=== PATIENT | female | born 1935 | race Caucasian/White ===

== ENCOUNTER 2017-11-10 00:03 | Emergency (ER) | payer MEDICARE, OTHER ==
[~2017-11-10] VITALS: Ht 170.2 cm; Wt 65.8 kg
[~2017-11-10 00:03] MED LIST: AMIO200T PO; ATOR40TA PO; DILT240C88 PO; LOSA100T15 PO; MEMA10TA PO; THIA100T13 PO; WARF2TAB6 PO
--- NOTE | 2017-11-10 00:18 | NUR ---
PT TIMMY FROM HOME, PT A/OX4 BREATHING EFFORTLESSLY ON ROOM AIR, PT STATES SHE WAS WALKING AT HOME AND HAD A GLF, PT DENIES ANY INJURIES AT THIS TIME BUT WAS NOT CHERI TO GET OFF THE FLOOR THAT IS WHY PT STATES SHE CALLED 911, PT ON MONITOR, SAEID ORTIZ MD MADE AWARE WILL CONTINUE TO MONITOR.
--- NOTE | 2017-11-10 02:00 | NUR ---
PT IN BED IN NAD, ON MONITOR, VSS WILL CONTINUE TO MONITOR.
--- NOTE | 2017-11-10 04:15 | NUR ---
PT WALKED OUT OF THE ER WITH A STEADY GAIT A TAXI WAS CALLED FOR PATIENT
[2017-11-10 04:17] VITALS: BP 127/70
== END 2017-11-10 04:17 | disposition home or self-care (01) ==
LOC: ER 00:05
DX: S09.90XA Unspecified injury of head, initial encounter (principal); R51 Headache; F10.129 Alcohol abuse with intoxication, unspecified; I10 Essential (primary) hypertension; I48.91 Unspecified atrial fibrillation; E78.00 Pure hypercholesterolemia, unspecified; Z79.01 Long term (current) use of anticoagulants; Z88.0 Allergy status to penicillin; Z95.0 Presence of cardiac pacemaker; Z88.1 Allergy status to other antibiotic agents; Z88.8 Allergy status to other drugs, medicaments and biological substances; W01.198A Fall on same level from slipping, tripping and stumbling with subsequent striking against other object, initial encounter; Y93.89 Activity, other specified; Y92.89 Other specified places as the place of occurrence of the external cause; Y99.8 Other external cause status
CPT/HCPCS: 70450; 72125; 99284; A4606; L0172; Z7610

== ENCOUNTER 2017-11-17 14:40 | Inpatient (IN) | payer MEDICARE, OTHER ==
[~2017-11-17] VITALS: Ht 170.2 cm; Wt 76.2 kg
[2017-11-17] MEDS ORDERED: ONDANSETRON HCL/PF 4 MG/2 ML VIAL ONE (14:57)
[2017-11-17] MEDS ORDERED: IV NS 0.9% 1,000 ML BAG IV ONE (15:00)
[2017-11-17] MEDS ORDERED: Thiamine 100 MG in IV D5W 50 ML IV SCH (15:00)
[2017-11-17] MEDS ORDERED: ONDANSETRON HCL/PF 4 MG/2 ML VIAL IVP ONE (15:00)
[2017-11-17 15:06] LABS: BASOPHILS % (AUTO) 0.6 % (0.0-2.0); EOSINOPHILS # (AUTO) 0.1 /CMM (0.0-0.7); EOSINOPHILS % (AUTO) 1.6 % (0.0-6.0); HEMATOCRIT 39 % (33-45); HEMOGLOBIN 12.9 g/dL (11.5-14.8); LYMPHOCYTES # (AUTO) 1.7 /CMM (0.8-4.8); LYMPHOCYTES % (AUTO) 38.2 % (20.0-44.0); MEAN CORPUSCULAR HEMOGLOBIN 36 PG (26.0-33.0); MEAN CORPUSCULAR HGB CONC 34 g/dl (31.0-36.0); MEAN CORPUSCULAR VOLUME 106 fL (82-100); MONOCYTES # (AUTO) 0.6 /CMM (0.1-1.30); MONOCYTES % (AUTO) 13.1 % (2.0-12.0); NEUTROPHILS % (AUTO) 46.5 % (43.0-81.0); PLATELET COUNT (AUTO) 152 /CMM (150-450); RDW COEFFICIENT OF VARIATION 13.5 (11.5-15.0); RED BLOOD CELL COUNT(AUTO) 3.63 MIL/uL (4.0-5.2); WHITE BLOOD COUNT (AUTO) 4.4 K/uL (4.3-11.0)
[2017-11-17 15:16] LABS: CALCIUM, SERUM 7.6 mg/dL (8.5-10.1); CARBON DIOXIDE 24 mmol/L (21-32); CHLORIDE 104 mmol/L (98-107); CREATININE 2.4 mg/dL (0.6-1.3); GLUCOSE 123 mg/dL (74-106); POTASSIUM 3.1 mmol/L (3.5-5.1); SODIUM SERUM 141 mmol/L (136-145); UREA NITROGEN, BLOOD 34 mg/dL (7-18)
[2017-11-17 15:22] LABS: ALANINE AMINOTRANSFERASE 20 U/L (12-78); ALBUMIN 2.9 g/dL (3.4-5.0); ALKALINE PHOSPHATASE 129 U/L (46-116); ASPARTATE AMINOTRANSFERASE 25 U/L (15-37); BILIRUBIN,DIRECT 0.1 mg/dL (0.0-0.2); BILIRUBIN,TOTAL 0.3 mg/dL (0.2-1.0); TOTAL PROTEIN, SERUM 6.6 g/dL (6.4-8.2)
[2017-11-17] MEDS ORDERED: SOTA120T9 PO (15:25)
[2017-11-17] MEDS ORDERED: DILT-32 PO (15:25)
[2017-11-17 15:53] LABS: MAGNESIUM 1.1 mg/dL (1.8-2.4)
[2017-11-17 16:00] LABS: TROPONIN I < 0.017 ng/mL (0.00-0.056)
[2017-11-17] MEDS ORDERED: IV NS 0.9% 1,000 ML IV ONE (16:00)
[2017-11-17] MEDS: Magnesium 1GM/D5W 100ML PREMIX 100 ML IV SCH ×2 (16:00→17:00)
[2017-11-17] MEDS ORDERED: Magnesium 1GM/D5W 100ML PREMIX 200 ML IV ONE (16:12)
[2017-11-17] MEDS ORDERED: POTASSIUM CHLORIDE 20 MEQ TAB.PRT.SR PO ONE ×2 (16:30→16:43)
[2017-11-17 16:55] LABS: INR 1.63 (0.87-1.13)
[2017-11-17] MEDS ORDERED: ACETAMINOPHEN 325 MG TABLET PO PRN (18:00)
[2017-11-17] MEDS ORDERED: ONDANSETRON HCL/PF 4 MG/2 ML VIAL IVP PRN (18:00)
[2017-11-17] MEDS: FOLIC ACID 1 MG TABLET PO SCH (18:00)
[2017-11-17] MEDS ORDERED: HYDROCODONE/APAP 5/325MG 1 EACH TABLET PO PRN (18:00)
[2017-11-17] MEDS ORDERED: MAGNESIUM HYDROXIDE 30 ML UDC PO PRN (18:00)
[2017-11-17] MEDS ORDERED: MAG HYDROX/AL HYDROX/SIMETH 30 ML UDC PO PRN (18:00)
[2017-11-17] MEDS ORDERED: ZOLPIDEM TARTRATE 5 MG TABLET PO PRN (18:00)
[2017-11-17] MEDS ORDERED: Z GUARD REMEDY 2 OZ OINT TP PRN (18:00)
[2017-11-17] MEDS ORDERED: SOTALOL HCL 80 MG TABLET PO SCH (19:00)
[2017-11-17 20:00] VITALS: BP 151/78
[2017-11-17 20:15] VITALS: BP 151/78
[2017-11-17] MEDS ORDERED: SOTALOL HCL 80 MG TABLET ONE (20:37)
[2017-11-17] MEDS ORDERED: LOSARTAN POTASSIUM 50 MG TABLET ONE (20:38)
[2017-11-17] MEDS ORDERED: HEPARIN SODIUM, PORCINE 5000 UNITS/1 ML VIAL ONE (20:38)
[2017-11-17] MEDS ORDERED: MEMANTINE HCL 5 MG TABLET ONE (20:39)
[2017-11-17] MEDS ORDERED: ATORVASTATIN 40 MG TABLET ONE (20:39)
[2017-11-17] MEDS ORDERED: DILTIAZEM HCL CD 120 MG PO ONE (20:44)
[2017-11-17] MEDS: IV NS 0.9% 1,000 ML IV PRN (21:00)
[2017-11-17] MEDS: MEMANTINE HCL 5 MG TABLET PO SCH (21:20)
[2017-11-17] MEDS: WARFARIN SODIUM 2 MG TABLET PO SCH (21:22)
[2017-11-17] MEDS: HEPARIN SODIUM, PORCINE 5000 UNITS/1 ML VIAL SQ SCH (21:22)
[2017-11-17] MEDS: DILTIAZEM HCL CD 120 MG PO SCH (21:28)
[2017-11-17] MEDS: ATORVASTATIN 40 MG TABLET PO SCH (21:32)
[2017-11-17] MEDS ORDERED: LOSARTAN POTASSIUM 25 MG TABLET PO SCH (22:00)
[2017-11-18] VITALS: BP 129/82
[2017-11-18 04:00] VITALS: BP 126/61
[2017-11-18 06:54] LABS: BASOPHILS % (AUTO) 0.3 % (0.0-2.0); EOSINOPHILS # (AUTO) 0.1 /CMM (0.0-0.7); EOSINOPHILS % (AUTO) 1.3 % (0.0-6.0); HEMATOCRIT 36 % (33-45); HEMOGLOBIN 12.1 g/dL (11.5-14.8); LYMPHOCYTES # (AUTO) 1.4 /CMM (0.8-4.8); LYMPHOCYTES % (AUTO) 26.8 % (20.0-44.0); MEAN CORPUSCULAR HEMOGLOBIN 37 PG (26.0-33.0); MEAN CORPUSCULAR HGB CONC 34 g/dl (31.0-36.0); MEAN CORPUSCULAR VOLUME 109 fL (82-100); MONOCYTES # (AUTO) 0.8 /CMM (0.1-1.30); MONOCYTES % (AUTO) 16.3 % (2.0-12.0); NEUTROPHILS # (AUTO) 2.8 /CMM (1.8-8.9); NEUTROPHILS % (AUTO) 55.3 % (43.0-81.0); PLATELET COUNT (AUTO) 126 /CMM (150-450); RDW COEFFICIENT OF VARIATION 14.2 (11.5-15.0); RED BLOOD CELL COUNT(AUTO) 3.27 MIL/uL (4.0-5.2); WHITE BLOOD COUNT (AUTO) 5.1 K/uL (4.3-11.0)
[2017-11-18 07:06] LABS: CHOLESTEROL 138 mg/dL (<200); HDL CHOLESTEROL 56 mg/dL (40-60); LDL 67 mg/dL (0-99); TRIGLYCERIDES 175 mg/dL (30-150)
[2017-11-18 07:38] LABS: CALCIUM, SERUM 7.4 mg/dL (8.5-10.1); CARBON DIOXIDE 22 mmol/L (21-32); CHLORIDE 109 mmol/L (98-107); CREATININE 1.7 mg/dL (0.6-1.3); GLUCOSE 105 mg/dL (74-106); MAGNESIUM 1.6 mg/dL (1.8-2.4); PHOSPHORUS 3.4 mg/dL (2.5-4.9); POTASSIUM 4.1 mmol/L (3.5-5.1); SODIUM SERUM 142 mmol/L (136-145); UREA NITROGEN, BLOOD 27 mg/dL (7-18)
[2017-11-18 08:00] VITALS: BP 128/70
[2017-11-18 08:28] LABS: BAND % (MANUAL) 3 % (0.0-5.0); EOSINOPHILS % (MANUAL) 2 % (0-4); LYMPHOCYTES % (MANUAL) 25 % (16-48); MONOCYTES % (MANUAL) 13 % (0-11.0); NEUTROPHILS % (MANUAL) 57 (42-76)
[2017-11-18] MEDS ORDERED: MAGNESIUM OXIDE 400 MG TABLET PO SCH (09:00)
[2017-11-18] MEDS: DILTIAZEM HCL CD 120 MG PO SCH (09:00)
[2017-11-18] MEDS ORDERED: SOTALOL HCL 80 MG TABLET PO SCH (09:00)
[2017-11-18] MEDS ORDERED: THIAMINE HCL 100 MG TABLET PO SCH (09:00)
[2017-11-18] MEDS: FOLIC ACID 1 MG TABLET PO SCH (09:12)
[2017-11-18] MEDS: MEMANTINE HCL 5 MG TABLET PO SCH ×2 (09:12→17:31)
[2017-11-18] MEDS: HEPARIN SODIUM, PORCINE 5000 UNITS/1 ML VIAL SQ SCH (09:14)
[2017-11-18] MEDS: IV NS 0.9% 1,000 ML IV PRN (09:21)
[2017-11-18] MEDS: SOTALOL HCL 80 MG TABLET PO SCH ×2 (09:29→17:32)
[2017-11-18 09:54] LABS: INR 1.66 (0.87-1.13); PROTHROMBIN TIME 17.4 SECS (9.5-12.7)
[2017-11-18 16:00] VITALS: BP 144/75
[2017-11-18 17:15] LABS: INR 1.63 (0.87-1.13)
[2017-11-18] MEDS: ATORVASTATIN 40 MG TABLET PO SCH (17:31)
[2017-11-18 17:32] VITALS: BP 133/75
[2017-11-18] MEDS: WARFARIN SODIUM 2 MG TABLET PO SCH (17:43)
[2017-11-18] MEDS ORDERED: LOSARTAN POTASSIUM 50 MG TABLET PO SCH (22:00)
== END 2017-11-18 18:25 | disposition home or self-care (01) | DRG 896 ==
LOC: ER 14:43 → TELE1 19:35 → MEDSG1 11-18 15:43
PROVIDERS: ADMIT Nurse Practitioner Acute Care; ATTEND Nurse Practitioner Acute Care
DX: F10.229 Alcohol dependence with intoxication, unspecified (principal); N17.0 Acute kidney failure with tubular necrosis; G92 Toxic encephalopathy; E44.0 Moderate protein-calorie malnutrition; D68.59 Other primary thrombophilia; I48.91 Unspecified atrial fibrillation; E83.42 Hypomagnesemia; E66.9 Obesity, unspecified; E78.5 Hyperlipidemia, unspecified; W19.XXXA Unspecified fall, initial encounter; R55 Syncope and collapse; E87.6 Hypokalemia; I10 Essential (primary) hypertension; I25.10 Atherosclerotic heart disease of native coronary artery without angina pectoris; Z95.0 Presence of cardiac pacemaker; Z96.649 Presence of unspecified artificial hip joint; Z88.0 Allergy status to penicillin; I49.9 Cardiac arrhythmia, unspecified; T51.0X1A Toxic effect of ethanol, accidental (unintentional), initial encounter; Y90.6 Blood alcohol level of 120-199 mg/100 ml; Z68.26 Body mass index [BMI] 26.0-26.9, adult; Y93.9 Activity, unspecified; Y92.009 Unspecified place in unspecified non-institutional (private) residence as the place of occurrence of the external cause
CPT/HCPCS: 36415; 70450-TC; 71045-TC; 80048-TC; 80061-TC; 80076-TC; 83735-TC; 84100-TC; 84484-TC; 85025-TC; 85610-TC; 85730-TC; 87081-TC; A4606; G0480; J1644; J2405; J3411; J3475; J7030; J7060; Z7610

== ENCOUNTER 2017-11-19 11:27 | Inpatient (IN) | payer MEDICARE, OTHER ==
[~2017-11-19] VITALS: Ht 167.6 cm; Wt 70.8 kg
[~2017-11-19 11:27] MED LIST changes: -AMIO200T PO; +DILT-32 PO; -DILT240C88 PO; +SOTA120T9 PO; -THIA100T13 PO
--- NOTE | 2017-11-19 11:30 | NUR ---
[id number] FROM HOME FOR SOB, [id number]. PATIENT STATING SHE CANT GET ANY BREATHS IN. CURRENTLY ON 10 L OXYGEN VIA NON-REBREATHER. SATURATION 100%. 91% SATURATION ON ROOM AIR. BREATHING EVEN, SLIGHTLY LABORED. PATIENT IS A/OX 4. NO NEURO DEFICITS. SAFETY AND COMFORT MEASURES IN PLACE. AWAITING MD ORDERS.
--- NOTE | 2017-11-19 11:45 | NUR ---
NEW IV STARTED ON RFA, 20 G. BLOOD DRAWN AND SENT TO LAB .
--- NOTE | 2017-11-19 12:00 | NUR ---
PATIENT TAKEN OFF NON REBREATHER, PLACED ON 3L OXYGEN VIA NC. SATURATION REMAINS AROUND 97%. WILL CONTINUE TO MONITOR.
[2017-11-19 12:04] LABS: BASOPHILS % (AUTO) 0.2 % (0.0-2.0); EOSINOPHILS # (AUTO) 0.1 /CMM (0.0-0.7); EOSINOPHILS % (AUTO) 1.5 % (0.0-6.0); HEMATOCRIT 38 % (33-45); HEMOGLOBIN 12.7 g/dL (11.5-14.8); LYMPHOCYTES # (AUTO) 1.1 /CMM (0.8-4.8); LYMPHOCYTES % (AUTO) 18.7 % (20.0-44.0); MEAN CORPUSCULAR HEMOGLOBIN 35 PG (26.0-33.0); MEAN CORPUSCULAR HGB CONC 34 g/dl (31.0-36.0); MEAN CORPUSCULAR VOLUME 105 fL (82-100); MONOCYTES # (AUTO) 0.7 /CMM (0.1-1.30); MONOCYTES % (AUTO) 11.5 % (2.0-12.0); NEUTROPHILS # (AUTO) 3.8 /CMM (1.8-8.9); NEUTROPHILS % (AUTO) 68.1 % (43.0-81.0); PLATELET COUNT (AUTO) 149 /CMM (150-450); RDW COEFFICIENT OF VARIATION 13.3 (11.5-15.0); RED BLOOD CELL COUNT(AUTO) 3.59 MIL/uL (4.0-5.2); WHITE BLOOD COUNT (AUTO) 5.7 K/uL (4.3-11.0)
[2017-11-19 12:16] LABS: CARBON DIOXIDE 23 mmol/L (21-32); CHLORIDE 109 mmol/L (98-107); CREATININE 1.3 mg/dL (0.6-1.3); GLUCOSE 117 mg/dL (74-106); POTASSIUM 4.2 mmol/L (3.5-5.1); SODIUM SERUM 141 mmol/L (136-145); UREA NITROGEN, BLOOD 22 mg/dL (7-18)
[2017-11-19 12:20] LABS: INR 1.77 (0.87-1.13)
[2017-11-19 12:24] LABS: TROPONIN I 0.019 ng/mL (0.00-0.056)
[2017-11-19 12:28] LABS: ALANINE AMINOTRANSFERASE 32 U/L (12-78); ALBUMIN 3.1 g/dL (3.4-5.0); ALKALINE PHOSPHATASE 159 U/L (46-116); ASPARTATE AMINOTRANSFERASE 41 U/L (15-37); B-TYPE NATRIURETIC PEPTIDE 5750 PG/ML (0-125); BILIRUBIN,DIRECT 0.2 mg/dL (0.0-0.2); BILIRUBIN,TOTAL 0.8 mg/dL (0.2-1.0); TOTAL PROTEIN, SERUM 6.9 g/dL (6.4-8.2)
[2017-11-19 12:39] LABS: D-DIMER 1.95 mg/L(FEU (0.17-0.50)
[2017-11-19] MEDS ORDERED: FUROSEMIDE 40 MG/4 ML VIAL ONE (13:29)
[2017-11-19] MEDS ORDERED: NITROGLYCERIN PACKET 1 GM PACKET ONE (13:29)
[2017-11-19] MEDS ORDERED: ASPIRIN 81 MG TAB.CHEW ONE (13:29)
[2017-11-19] MEDS ORDERED: NITROGLYCERIN PACKET 1 GM PACKET TD ONE (13:30)
[2017-11-19] MEDS ORDERED: ASPIRIN 81 MG TAB.CHEW PO ONE (13:30)
[2017-11-19] MEDS ORDERED: FUROSEMIDE 40 MG/4 ML VIAL IV ONE (13:30)
--- NOTE | 2017-11-19 13:43 | NUR ---
REPORT GIVEN TO JERRELL TEMPLE FOR LETI UPON ADMISSION.
--- NOTE | 2017-11-19 14:00 | NUR ---
APPLICATION HELPERENGINEER THIRD ASSISTANT NOTE PATIENT IS ALERT AND ORIENTED x4. NO PAIN AT THIS TIME. NO SOB OR DISTRESS NOTED. CALL LIGHT WITHIN REACH. SAFETY MEASURES IMPLEMENTED. ALL BELONGINGS DOCUMENTED IN CHART. IV ON RIGHT FOREARM INTACT AND PATENT NO REDNESS OR SWELLING NOTED. BROUGHT IN BY AMBULANCE DUE TO SHORTNESS OF BREATH AT HOME. PATIENT IS ON 3L/MIN OF OXYGEN VIA NASAL CANNULA. SKIN INTACT, NO ISSUES PRESENT. LEFT EYE REDNESS. AWAITING FOR MD ORDERS. CARDIAC DIET. FULL CODE NO ISOLATION. WILL CONTINUE TO MONITOR FOR LETI
--- NOTE | 2017-11-19 14:18 | NUR ---
PATIENT TRANSPORTED TO [facility] VIA ACLS PROTOCOL. RNJERRELL TO PROVIDE LETI.
[2017-11-19] MEDS ORDERED: HYDROCODONE/APAP 5/325MG 1 EACH TABLET PO PRN (15:30)
[2017-11-19] MEDS ORDERED: MAG HYDROX/AL HYDROX/SIMETH 30 ML UDC PO PRN (15:30)
[2017-11-19] MEDS ORDERED: MAGNESIUM HYDROXIDE 30 ML UDC PO PRN (15:30)
[2017-11-19] MEDS ORDERED: ZOLPIDEM TARTRATE 5 MG TABLET PO PRN (15:30)
[2017-11-19] MEDS ORDERED: ONDANSETRON HCL/PF 4 MG/2 ML VIAL IVP PRN (15:30)
[2017-11-19] MEDS ORDERED: Z GUARD REMEDY 2 OZ OINT TP PRN (15:30)
[2017-11-19 16:00] VITALS: BP 160/94
[2017-11-19] MEDS: SOTALOL HCL 80 MG TABLET PO SCH (16:00)
[2017-11-19] MEDS ORDERED: FLU VACC QS 2017-18(36MOS+)/PF 0.5 ML DISP.SYRIN IM ONE (16:30)
[2017-11-19] MEDS: LOSARTAN POTASSIUM 25 MG TABLET PO SCH (16:50)
[2017-11-19] MEDS: MEMANTINE HCL 5 MG TABLET PO SCH (16:50)
[2017-11-19] MEDS: WARFARIN SODIUM 2 MG TABLET PO SCH (16:58)
[2017-11-19] MEDS: ATORVASTATIN 40 MG TABLET PO SCH (17:16)
[2017-11-19] MEDS: ACETAMINOPHEN 325 MG TABLET PO PRN ×2 (17:16→20:08)
--- NOTE | 2017-11-19 18:41 | NUR ---
SOFTWARE QUALITY ASSURANCE ANALYST CLOSING NOTE NO NEW CHANGES AT THIS TIME. NO SOB OR DISTRESS NOTED. NO PAIN AT THIS TIME. CALL LIGHT WITHIN REACH AT ALL TIMES. SAFETY MEASURES IMPLEMENTED. ABLE TO COMMUNICATE NEEDS. ALL NURSING CARE NEEDS ATTENDED TO NEEDED. ALL DUE MEDICATIONS GIVEN. IV INTACT AND PATENT NO REDNESS OR SWELLING NOTED. TELE MONITOR-SINUS RHYTHM 96 PACS. WILL ENDORSE TO RAIL CAR DRIVER FOR LETI
--- NOTE | 2017-11-19 19:56 | NUR ---
RN INITIAL NOTES Received pt sitting at the edge of the bed, talking with roommate. Pt is a/o x4, respirations are even and unlabored, not in any acute distress noted. denies any pain at this time. peripheral iv to RFA, intact and patent. dressing kept clean and dry. Reminded pt to use call light when assistance is needed, call light is left within reach. Will continue to monitor throughout shift for continuity of care.
[2017-11-19 20:00] VITALS: BP 128/84
--- NOTE | 2017-11-19 20:20 | NUR ---
RN NOTES Administered Tylenol 650mg PO for c/o "slight headache." Noted to be effective. No c/o pain at this time. will continue to monitor.
[2017-11-19 22:41] VITALS: BP 128/84
[2017-11-20] VITALS (7 sets, daily range): BP systolic 124–165; BP diastolic 63–89
[2017-11-20] MEDS: ACETAMINOPHEN 325 MG TABLET PO PRN ×2 (05:32→09:13)
--- NOTE | 2017-11-20 06:37 | NUR ---
SPECIAL PROCEDURE TECH CLOSING NOTES All due meds given, needs met and rendered. Pt remains a/ox4, respirations are even and unlabored, not in any acute distress noted. Currently on O2 @3L/min via NC, saturating at 94%. Pt c/o headache, administered Tylenol 650mg PO and noted to be effective. Peripheral to RFA intact, dressing kept clean and dry. No new skin injuries noted. On tele w/ Afib with PACs 80-110, denies any chest pain. Reminded pt to use call light when assistance is needed, call light left within reach. Will endorse to next shift for continuity of care.
[2017-11-20 07:07] LABS: BASOPHILS % (AUTO) 0.4 % (0.0-2.0); EOSINOPHILS # (AUTO) 0.1 /CMM (0.0-0.7); EOSINOPHILS % (AUTO) 1.3 % (0.0-6.0); HEMATOCRIT 34 % (33-45); HEMOGLOBIN 11.6 g/dL (11.5-14.8); LYMPHOCYTES # (AUTO) 1.3 /CMM (0.8-4.8); LYMPHOCYTES % (AUTO) 24.3 % (20.0-44.0); MEAN CORPUSCULAR HEMOGLOBIN 37 PG (26.0-33.0); MEAN CORPUSCULAR HGB CONC 34 g/dl (31.0-36.0); MEAN CORPUSCULAR VOLUME 108 fL (82-100); MONOCYTES # (AUTO) 0.7 /CMM (0.1-1.30); MONOCYTES % (AUTO) 13.6 % (2.0-12.0); NEUTROPHILS # (AUTO) 3.1 /CMM (1.8-8.9); NEUTROPHILS % (AUTO) 60.4 % (43.0-81.0); PLATELET COUNT (AUTO) 136 /CMM (150-450); RDW COEFFICIENT OF VARIATION 14.2 (11.5-15.0); RED BLOOD CELL COUNT(AUTO) 3.18 MIL/uL (4.0-5.2); WHITE BLOOD COUNT (AUTO) 5.2 K/uL (4.3-11.0)
[2017-11-20 07:09] LABS: INR 1.85 (0.87-1.13)
[2017-11-20 07:17] LABS: CHOLESTEROL 124 mg/dL (<200); HDL CHOLESTEROL 68 mg/dL (40-60); LDL 56 mg/dL (0-99); THYROID STIMULATING HORMONE 3.991 uIU/mL (0.358-3.74); TRIGLYCERIDES 110 mg/dL (30-150)
[2017-11-20 07:18] LABS: ALANINE AMINOTRANSFERASE 23 U/L (12-78); ALBUMIN 2.9 g/dL (3.4-5.0); ALKALINE PHOSPHATASE 129 U/L (46-116); ASPARTATE AMINOTRANSFERASE 20 U/L (15-37); BILIRUBIN,TOTAL 1.1 mg/dL (0.2-1.0); CALCIUM, SERUM 8.1 mg/dL (8.5-10.1); CARBON DIOXIDE 26 mmol/L (21-32); CHLORIDE 110 mmol/L (98-107); CREATININE 1.4 mg/dL (0.6-1.3); GLUCOSE 85 mg/dL (74-106); PHOSPHORUS 2.7 mg/dL (2.5-4.9); POTASSIUM 3.4 mmol/L (3.5-5.1); SODIUM SERUM 147 mmol/L (136-145); TOTAL PROTEIN, SERUM 6.5 g/dL (6.4-8.2); UREA NITROGEN, BLOOD 23 mg/dL (7-18)
--- NOTE | 2017-11-20 08:20 | NUR ---
RN NOTES RECEIVED PATIENT, AWAKE ALERT AND VERBALLY RESPONSIVE, IN BED RESTING COMFORTABLY, ABLE TO MAKE NEEDS KNOWN. RESPIRATIONS EVEN AND UNLABORED, DENIES ANY PAIN OR DISCOMFORT AT THIS TIME. IV ACCESS TO RIGHT FORE ARM PATENT AND INTACT NO REDNESS OR INFILTRATION NOTED. KEPT CLEAN AND COMFORTABLE, SAFETY MEASURES IN PLACE WILL CONTINUE TO MONITOR
[2017-11-20 08:30] LABS: MAGNESIUM 1.1 mg/dL (1.8-2.4)
[2017-11-20] MEDS ORDERED: FUROSEMIDE 40 MG/4 ML VIAL IV SCH (09:00)
[2017-11-20] MEDS: SOTALOL HCL 80 MG TABLET PO SCH (09:00)
[2017-11-20] MEDS ORDERED: POTASSIUM CHLORIDE 20 MEQ TAB.PRT.SR PO SCH (09:00)
[2017-11-20] MEDS: MEMANTINE HCL 5 MG TABLET PO SCH ×2 (09:12→16:55)
[2017-11-20] MEDS: DILTIAZEM HCL CD 120 MG PO SCH (09:13)
[2017-11-20] MEDS: LOSARTAN POTASSIUM 25 MG TABLET PO SCH (09:14)
[2017-11-20] MEDS: Magnesium 1GM/D5W 100ML PREMIX 100 ML IV SCH ×4 (09:14→16:48)
[2017-11-20 10:50] LABS: EOSINOPHILS % (MANUAL) 1 % (0-4); LYMPHOCYTES % (MANUAL) 27 % (16-48); MONOCYTES % (MANUAL) 13 % (0-11.0); NEUTROPHILS % (MANUAL) 59 (42-76)
[2017-11-20] MEDS: WARFARIN SODIUM 2 MG TABLET PO SCH (16:56)
[2017-11-20] MEDS: ATORVASTATIN 40 MG TABLET PO SCH (17:01)
--- NOTE | 2017-11-20 18:15 | NUR ---
Met with patient at bedside, she is alert and very pleasant.Stated she lives alone. She is ambulatory and independent with adl's and still driving. Has a grabber, no other DME or homehealth reported. Her pcp is Dr. Cha of [facility], barkeep is Dr. Delilah Chu [phone]. Patient will need taxi ride once discharge. Addendum: 11/20/17 at 1815 by DAR TRIPLETT RN Amended: Links added.
--- NOTE | 2017-11-20 19:30 | NUR ---
RN NOTES PATIENT, AWAKE ALERT AND VERBALLY RESPONSIVE, IN BED RESTING COMFORTABLY, ABLE TO MAKE NEEDS KNOWN. RESPIRATIONS EVEN AND UNLABORED, DENIES ANY PAIN OR DISCOMFORT AT THIS TIME. IV ACCESS TO RIGHT FORE ARM PATENT AND INTACT NO REDNESS OR INFILTRATION NOTED. KEPT CLEAN AND COMFORTABLE, SAFETY MEASURES IN PLACE ENDORSED TO NEXT SHIFT FOR CONTINUITY OF CARE
--- NOTE | 2017-11-20 19:45 | NUR ---
MS RN OPENING NOTES RECEIVED PATIENT RESTING IN BED, A & O X 3-4, NO C/O PAIN, NO ACUTE DISCOMFORT OR DISTRESS NOTED @ THIS TIME. AMB WITH ASSIST. IV ACCESS TO RFA, INTACT PATENT, RUNNING WITH IV MAGNESIUM @ THIS TIME. NO S/S OF INFECTION NOTED. BED IN LOW LOCKED POSITION. CALL LIGHT WITHIN REACH. WILL CONTINUE TO MONITOR CLOSELY.
--- NOTE | 2017-11-21 07:06 | NUR ---
MS RN CLOSING NOTES PATIENT SLEPT INTERMITTENTLY @ NIGHT, A & O X 3-4, NO C/O PAIN, NO ACUTE DISCOMFORT OR DISTRESS NOTED @ THIS TIME. AMB WITH ASSIST. HAD SNACKS @ NIGHT. IV ACCESS TO RFA, SL, INTACT PATENT. NO S/S OF INFECTION NOTED. BED IN LOW LOCKED POSITION. CALL LIGHT WITHIN REACH. WILL ENDORSE TO AM RN FOR CONTINUITY OF CARE.
[2017-11-21 07:43] LABS: BASOPHILS % (AUTO) 0.4 % (0.0-2.0); EOSINOPHILS # (AUTO) 0.1 /CMM (0.0-0.7); EOSINOPHILS % (AUTO) 2.4 % (0.0-6.0); HEMATOCRIT 36 % (33-45); HEMOGLOBIN 12.3 g/dL (11.5-14.8); LYMPHOCYTES # (AUTO) 1.1 /CMM (0.8-4.8); LYMPHOCYTES % (AUTO) 25.2 % (20.0-44.0); MEAN CORPUSCULAR HEMOGLOBIN 37 PG (26.0-33.0); MEAN CORPUSCULAR HGB CONC 34 g/dl (31.0-36.0); MEAN CORPUSCULAR VOLUME 108 fL (82-100); MONOCYTES # (AUTO) 0.6 /CMM (0.1-1.30); MONOCYTES % (AUTO) 12.9 % (2.0-12.0); NEUTROPHILS # (AUTO) 2.7 /CMM (1.8-8.9); NEUTROPHILS % (AUTO) 59.1 % (43.0-81.0); PLATELET COUNT (AUTO) 155 /CMM (150-450); RDW COEFFICIENT OF VARIATION 14.5 (11.5-15.0); RED BLOOD CELL COUNT(AUTO) 3.32 MIL/uL (4.0-5.2); WHITE BLOOD COUNT (AUTO) 4.6 K/uL (4.3-11.0)
[2017-11-21 07:48] LABS: INR 1.68 (0.87-1.13)
[2017-11-21 08:00] VITALS: BP 129/82
[2017-11-21 08:04] LABS: ALANINE AMINOTRANSFERASE 32 U/L (12-78); ALBUMIN 3.2 g/dL (3.4-5.0); ALKALINE PHOSPHATASE 126 U/L (46-116); ASPARTATE AMINOTRANSFERASE 23 U/L (15-37); BILIRUBIN,TOTAL 0.8 mg/dL (0.2-1.0); CALCIUM, SERUM 8.4 mg/dL (8.5-10.1); CARBON DIOXIDE 28 mmol/L (21-32); CHLORIDE 109 mmol/L (98-107); CREATININE 1.1 mg/dL (0.6-1.3); GLUCOSE 98 mg/dL (74-106); MAGNESIUM 1.5 mg/dL (1.8-2.4); PHOSPHORUS 2.6 mg/dL (2.5-4.9); POTASSIUM 3.2 mmol/L (3.5-5.1); SODIUM SERUM 147 mmol/L (136-145); UREA NITROGEN, BLOOD 20 mg/dL (7-18)
[2017-11-21] MEDS: SOTALOL HCL 80 MG TABLET PO SCH (09:35)
[2017-11-21] MEDS: LOSARTAN POTASSIUM 25 MG TABLET PO SCH (09:37)
[2017-11-21] MEDS: MEMANTINE HCL 5 MG TABLET PO SCH (09:38)
[2017-11-21] MEDS: DILTIAZEM HCL CD 120 MG PO SCH (09:39)
[2017-11-21] MEDS: POTASSIUM CHLORIDE 20 MEQ TAB.PRT.SR PO SCH ×3 (09:39→12:19)
[2017-11-21] MEDS: Magnesium 1GM/D5W 100ML PREMIX 100 ML IV SCH ×2 (09:43→11:03)
[2017-11-21 16:00] VITALS: BP 122/66
--- NOTE | 2017-11-21 17:30 | NUR ---
RN NOTES PATIENT, AWAKE ALERT AND VERBALLY RESPONSIVE, IN BED RESTING COMFORTABLY, ABLE TO MAKE NEEDS KNOWN. RESPIRATIONS EVEN AND UNLABORED, DENIES ANY PAIN OR DISCOMFORT AT THIS TIME. IV ACCESS TO RIGHT HAND REMOVED WITH NO ASE NOTED. PT WITH DISCHARGE ORDERS ALL DISCHARGE INSTRUCTIONS GIVEN TO PATIENT AND REVIEWED WITH NOTED VERBAL UNDERSTANDING NOTED.TAXI VOUCHER PROVIDED, ASSISTED TO LOBBY BY RN, DISCHARGED IN STABLE CONDITION
== END 2017-11-21 17:20 | disposition home or self-care (01) | DRG 291 ==
LOC: ER 11:28 → TELE 14:56 → MED 11-20 11:18
PROVIDERS: ADMIT Internal Medicine; ATTEND Internal Medicine
DX: I13.0 Hypertensive heart and chronic kidney disease with heart failure and stage 1 through stage 4 chronic kidney disease, or unspecified chronic kidney disease (principal); N17.0 Acute kidney failure with tubular necrosis; I50.33 Acute on chronic diastolic (congestive) heart failure; I48.92 Unspecified atrial flutter; I48.91 Unspecified atrial fibrillation; E83.42 Hypomagnesemia; E78.5 Hyperlipidemia, unspecified; Z95.0 Presence of cardiac pacemaker; E03.9 Hypothyroidism, unspecified; E87.6 Hypokalemia; N18.9 Chronic kidney disease, unspecified; G31.2 Degeneration of nervous system due to alcohol; F10.10 Alcohol abuse, uncomplicated
CPT/HCPCS: 36415; 71045-TC; 80048-TC; 80053-TC; 80061-TC; 80076-TC; 83735-TC; 83880; 84100-TC; 84443-TC; 84484-TC; 85025-TC; 85378-TC; 85610-TC; 85730-TC; 87081-TC; 93307-TC; A4606; J1940; J3475; Q2036; Z7610

== ENCOUNTER 2018-01-01 14:24 | Inpatient (IN) | payer MEDICARE, OTHER ==
[~2018-01-01] VITALS: Ht 167.6 cm; Wt 68.0 kg
--- NOTE | 2018-01-01 14:30 | NUR ---
JENNIFER FROM HOME DT POSSIBLE SYNCOPAL EPISODE. PATIENT NOTED WITH LFT INDEX FINGER OPEN WOUND. PATIENT DENIES CHEST PAIN,. NO SOB. SKIN IS WARM TO TOUCH AND NON DIAPHORETIC. PT IS AFEBRILE. VSS
--- NOTE | 2018-01-01 14:33 | NUR ---
MD EDWARD AT BEDSIDE
[2018-01-01 15:09] LABS: BASOPHILS % (AUTO) 0.4 % (0.0-2.0); EOSINOPHILS # (AUTO) 0.1 /CMM (0.0-0.7); EOSINOPHILS % (AUTO) 1.3 % (0.0-6.0); HEMATOCRIT 42 % (33-45); HEMOGLOBIN 14.3 g/dL (11.5-14.8); LYMPHOCYTES % (AUTO) 18.4 % (20.0-44.0); MEAN CORPUSCULAR HEMOGLOBIN 36 PG (26.0-33.0); MEAN CORPUSCULAR HGB CONC 34 g/dl (31.0-36.0); MEAN CORPUSCULAR VOLUME 104 fL (82-100); MONOCYTES # (AUTO) 0.5 /CMM (0.1-1.30); MONOCYTES % (AUTO) 8.3 % (2.0-12.0); NEUTROPHILS # (AUTO) 3.9 /CMM (1.8-8.9); NEUTROPHILS % (AUTO) 71.6 % (43.0-81.0); PLATELET COUNT (AUTO) 129 /CMM (150-450); RDW COEFFICIENT OF VARIATION 14.1 (11.5-15.0); RED BLOOD CELL COUNT(AUTO) 3.98 MIL/uL (4.0-5.2); WHITE BLOOD COUNT (AUTO) 5.5 K/uL (4.3-11.0)
[2018-01-01 15:20] LABS: CALCIUM, SERUM 9.5 mg/dL (8.5-10.1); CARBON DIOXIDE 26 mmol/L (21-32); CHLORIDE 107 mmol/L (98-107); CREATININE 1.2 mg/dL (0.6-1.3); GLUCOSE 124 mg/dL (74-106); POTASSIUM 3.4 mmol/L (3.5-5.1); SODIUM SERUM 142 mmol/L (136-145); UREA NITROGEN, BLOOD 20 mg/dL (7-18)
[2018-01-01 15:25] LABS: INR 1.22 (0.85-1.15)
[2018-01-01 15:54] LABS: TROPONIN I < 0.017 ng/mL (0.00-0.056)
[2018-01-01 16:22] LABS: ALKALINE PHOSPHATASE 112 U/L (46-116); BILIRUBIN,DIRECT 0.2 mg/dL (0.0-0.2); BILIRUBIN,TOTAL 1.2 mg/dL (0.2-1.0)
[2018-01-01 16:23] LABS: ALANINE AMINOTRANSFERASE 24 U/L (12-78); ALBUMIN 3.8 g/dL (3.4-5.0); ASPARTATE AMINOTRANSFERASE 23 U/L (15-37); TOTAL PROTEIN, SERUM 7.7 g/dL (6.4-8.2)
[2018-01-01] MEDS ORDERED: POTASSIUM CHLORIDE 20 MEQ TAB.PRT.SR PO ONE ×2 (17:15→17:30)
--- NOTE | 2018-01-01 17:22 | NUR ---
SOL CAMPBELL CALLED FOR A TELE BED.
--- NOTE | 2018-01-01 17:29 | NUR ---
CALLED [employer] PRIMARY THERAPIST WAS PAGED.
--- NOTE | 2018-01-01 17:34 | NUR ---
TELE 321.2 IVY
--- NOTE | 2018-01-01 17:44 | NUR ---
REPORT GIVEN TO MAVERICK HAYNES FOR LETI
--- NOTE | 2018-01-01 18:16 | NUR ---
BED CHANGED TO 116. REPORT GIVEN TO SHIREEN BA.
--- NOTE | 2018-01-01 18:39 | NUR ---
PT TRANSPORTED TO [facility]. [facility]
[2018-01-01 18:45] VITALS: BP 154/91
--- NOTE | 2018-01-01 18:45 | NUR ---
SIGN LETTERER NOTE: RECEIVED PATIENT AT ROOM 116-2 AND REPORT WAS GIVEN BY MAVERICK HIGHTOWER FROM ER. PATIENT IS AWAKE, ALERT AND VERBALLY RESPONSIVE. NOT ON ANY FORM OF DISTRESS. ON HEALTH INFORMATICS SPECIALIST, V-PACING W/ A. FIB HR=89. DENIED PAIN. V/S= 154/91, 97.5F, 89, 20, 0/10. BED ALARM AND LOCKED AT ALL TIMES. HOB ELEVATED. PATIENT PLACED IN A COMFORTABLE POSITION ON THE BED. REPORT WILL BE GIVEN TO PM SHIFT NURSE FOR CONTINUITY OF CARE.
[2018-01-01] MEDS ORDERED: ZOLPIDEM TARTRATE 5 MG TABLET PO PRN (19:00)
[2018-01-01] MEDS ORDERED: ACETAMINOPHEN 325 MG TABLET PO PRN (19:00)
[2018-01-01] MEDS ORDERED: ONDANSETRON HCL/PF 4 MG/2 ML VIAL IVP PRN (19:00)
[2018-01-01] MEDS ORDERED: HYDROCODONE/APAP 5/325MG 1 EACH TABLET PO PRN (19:00)
[2018-01-01] MEDS ORDERED: MAGNESIUM HYDROXIDE 30 ML UDC PO PRN (19:00)
[2018-01-01] MEDS ORDERED: MAG HYDROX/AL HYDROX/SIMETH 30 ML UDC PO PRN (19:00)
[2018-01-01] MEDS ORDERED: Z GUARD REMEDY 2 OZ OINT TP PRN (19:00)
--- NOTE | 2018-01-01 19:20 | NUR ---
TELE/RN OPENING NOTES PT RECEIVED AWAKE, RESTING COMFORTABLY IN BED. A/OX2-3, FORGETFUL. ON ROOM AIR, BREATHING EVEN AND UNLABORED. IN NO OBVIOUS DISTRESS. DENIES SOB OR PAIN AT THIS TIME. ON TELE MONITOR SHOWING A FIB/A FLUTTER WITH HR 104. IV TO LAC PATENT AND INTACT. ORIENTED PT TO ROOM AND CALL LIGHT. BED IN LOW/LOCKED POSITION WITH CALL LIGHT IN REACH. SIDE RAILS UPX3 WITH BED ALARM ON FOR SAFETY. WILL CONTINUE TO MONITOR
[2018-01-01 20:00] VITALS: BP 156/79
[2018-01-01] MEDS ORDERED: ALBUMIN 25% 25 GM in PREMIX 1 EA IV PRN (20:00)
[2018-01-01] MEDS: MEMANTINE HCL 5 MG TABLET PO SCH (21:00)
[2018-01-01] MEDS: IV NS 0.9% 1,000 ML IV PRN (21:00)
[2018-01-01] MEDS: ATORVASTATIN 40 MG TABLET PO SCH (21:00)
[2018-01-02] VITALS (8 sets, daily range): BP systolic 106–153; BP diastolic 60–85
--- NOTE | 2018-01-02 06:03 | NUR ---
TELE/RN NOTES ORTHOSTATICS COMPLETED LAYING= 150/72, HR 74 SITTING= 153/84, HR=98 STANDING= 133/70, HR 86
--- NOTE | 2018-01-02 06:48 | NUR ---
TELE/RN CLOSING NOTES PT ASLEEP, EASILY AROUSABLE TO NAME. A/OX2, SOME CONFUSION/FORGETFUL. ON TELE MONITOR SHOWING A.FIB/A. FLUTTER WITH OCCASIONAL V-PACING, HR 82. DRESSING TO RIGHT INDEX FINGER C/D/I. WOUND CONSULT ORDERED. IV TO LAC RUNNING IVF ORDERED. NO S/S OF INFILTRATION. ORTHOSTATIC BP COMPLETED. NO SIGNIFICANT CHANGES OVERNIGHT. KEPT PT COMFORTABLE. ALL NEEDS MET. BED REMAINS IN LOW/LOCKED POSITION WITH CALL LIGHT IN REACH. SIDE RAILS UPX3 AND BED ALARM ON FOR SAFETY. PT CURRENTLY NPO FOR CARDIO CONSULT THIS AM. WILL ENDORSE TO DAY SHIFT RN LETI.
--- NOTE | 2018-01-02 07:26 | NUR ---
CAR DEALER NOTES RECEIVED PT ON BED. ALERT ORIENTEDX4. ON ROOM AIR SATURATING WELL. ON TELE MONITOR AFIB CONTROLLED. IV ACCESS LAC #20 NS 75CC/HR RUNNING WELL. NO SIGN OF INFILTRATION OR PAIN. HEAD OF BED ELEVATED. BED ALARM ON. SIDE RAILS UP. CALL LIGHT WITHIN REACH. WILL CONTINUE TO MONITOR PT CLOSELY.
[2018-01-02 07:31] LABS: BASOPHILS % (AUTO) 0.2 % (0.0-2.0); EOSINOPHILS # (AUTO) 0.1 /CMM (0.0-0.7); EOSINOPHILS % (AUTO) 1.7 % (0.0-6.0); HEMATOCRIT 38 % (33-45); LYMPHOCYTES # (AUTO) 1.5 /CMM (0.8-4.8); LYMPHOCYTES % (AUTO) 28.7 % (20.0-44.0); MEAN CORPUSCULAR HEMOGLOBIN 36 PG (26.0-33.0); MEAN CORPUSCULAR HGB CONC 34 g/dl (31.0-36.0); MEAN CORPUSCULAR VOLUME 105 fL (82-100); MONOCYTES # (AUTO) 0.6 /CMM (0.1-1.30); MONOCYTES % (AUTO) 12.1 % (2.0-12.0); NEUTROPHILS # (AUTO) 2.9 /CMM (1.8-8.9); NEUTROPHILS % (AUTO) 57.3 % (43.0-81.0); PLATELET COUNT (AUTO) 125 /CMM (150-450); RDW COEFFICIENT OF VARIATION 14.9 (11.5-15.0); RED BLOOD CELL COUNT(AUTO) 3.65 MIL/uL (4.0-5.2); WHITE BLOOD COUNT (AUTO) 5.1 K/uL (4.3-11.0)
[2018-01-02 08:35] LABS: ALANINE AMINOTRANSFERASE 21 U/L (12-78); ALBUMIN 3.3 g/dL (3.4-5.0); ALKALINE PHOSPHATASE 95 U/L (46-116); ASPARTATE AMINOTRANSFERASE 19 U/L (15-37); BILIRUBIN,TOTAL 0.9 mg/dL (0.2-1.0); CALCIUM, SERUM 8.8 mg/dL (8.5-10.1); CARBON DIOXIDE 20 mmol/L (21-32); CHLORIDE 110 mmol/L (98-107); GLUCOSE 96 mg/dL (74-106); MAGNESIUM 1.5 mg/dL (1.8-2.4); POTASSIUM 3.7 mmol/L (3.5-5.1); SODIUM SERUM 144 mmol/L (136-145); UREA NITROGEN, BLOOD 21 mg/dL (7-18)
[2018-01-02] MEDS ORDERED: SOTALOL HCL 80 MG TABLET PO SCH (09:00)
[2018-01-02] MEDS: DILTIAZEM HCL CD 120 MG PO SCH (09:15)
[2018-01-02] MEDS: SOTALOL HCL 80 MG TABLET PO SCH ×2 (09:15→16:56)
[2018-01-02] MEDS: LOSARTAN POTASSIUM 50 MG TABLET PO SCH (09:16)
[2018-01-02] MEDS: MEMANTINE HCL 5 MG TABLET PO SCH ×2 (09:16→16:58)
--- NOTE | 2018-01-02 09:36 | NUR ---
WOUND CARE CONSULT: PT PRESENTS WITH CLOSED LACERATION TO RT INDEX FINGER WITH STERI STRIPS IN PLACE, PRESENT ON ADMISSION. PT IS INDEPENDENT WITH BED MOBILITY AND IS CONTINENT. RECOMMENDATIONS MADE FOR SKIN PROTECTION AND DISCUSSED WITH NURSING STAFF. RECOMMEND SURGICAL FOLLOW UP. WILL SEE PRN. CURRENT GRETTA SCORE IS 23. MD IN AGREEMENT WITH PLAN OF CARE. Addendum: 01/02/18 at 0938 by JOHN TOBAR WNDNU Amended: Links added.
[2018-01-02 09:46] LABS: CHOLESTEROL 154 mg/dL (<200); HDL CHOLESTEROL 47 mg/dL (40-60); LDL 83 mg/dL (0-99); THYROID STIMULATING HORMONE 2.557 uIU/mL (0.358-3.74); TRIGLYCERIDES 208 mg/dL (30-150)
[2018-01-02] MEDS ORDERED: MAGNESIUM OXIDE 400 MG TABLET PO ONE (10:30)
[2018-01-02] MEDS ORDERED: Magnesium 1GM/D5W 100ML PREMIX 100 ML IV SCH (10:30)
[2018-01-02] MEDS: ATORVASTATIN 40 MG TABLET PO SCH (17:00)
[2018-01-02] MEDS ORDERED: WARFARIN SODIUM 2 MG TABLET PO SCH (17:00)
--- NOTE | 2018-01-02 18:24 | NUR ---
MS RN NOTES NO ACUTE CHANGES NOTED DURING THE SHIFT. DUE MEDS GIVEN. SIDE RAILS UP. CALL LIGHT WITHIN REACH. WILL ENDORSE TO THE PM NURSE FOR LETI.
--- NOTE | 2018-01-02 20:00 | NUR ---
RN OPENING NOTES PT RECEIVED AWAKE, RESTING COMFORTABLY IN BED. A/OX2-3, FORGETFUL. ON ROOM AIR, BREATHING EVEN AND UNLABORED. IN NO OBVIOUS DISTRESS. DENIES SOB OR PAIN AT THIS TIME. IV TO LAC PATENT AND INTACT. BED IN LOW/LOCKED POSITION WITH CALL LIGHT IN REACH. SIDE RAILS UPX3 WITH BED ALARM ON FOR SAFETY. WILL CONTINUE TO MONITOR
--- NOTE | 2018-01-02 21:00 | NUR ---
RN NOTES PT IS VERY CONFUSED, SHE STATES SHE IS NOT AT A HOSPITAL AND WANTS TO SO HOME, PT REFERS TO MAVERICK AAS HER SISTER. PT KEEPS GETTING OUT OF BED. PT IS UNSTABLE ON HER FEET AND REQUIRES CONSTANT MONITORING.
[2018-01-03] VITALS: BP 126/77
--- NOTE | 2018-01-03 00:30 | NUR ---
RN NOTES PT REFUSED IV FLUIDS AND TRIED TO REMOVE IV LINE. PT REMOVED DRESSING ON FINGER SEVERAL TIMES.
[2018-01-03 04:00] VITALS: BP 155/81
--- NOTE | 2018-01-03 06:19 | NUR ---
RN CLOSING NOTES PT ASLEEP, A/OX2, CONFUSION/FORGETFUL. PT DOES NOT FOLLOW INSTRUCTIONS. DRESSING TO RIGHT INDEX FINGER C/D/I. IV TO LAC PT REFUSED IV FLUIDS . NO S/S OF INFILTRATION. ORTHOSTATIC BP COMPLETED. BED REMAINS IN LOW/LOCKED POSITION WITH CALL LIGHT IN REACH. SIDE RAILS UPX3 AND BED ALARM ON FOR SAFETY. WILL ENDORSE TO DAY SHIFT RN LETI.
[2018-01-03 06:38] LABS: BASOPHILS % (AUTO) 0.5 % (0.0-2.0); EOSINOPHILS # (AUTO) 0.1 /CMM (0.0-0.7); EOSINOPHILS % (AUTO) 1.9 % (0.0-6.0); HEMATOCRIT 38 % (33-45); HEMOGLOBIN 12.7 g/dL (11.5-14.8); LYMPHOCYTES # (AUTO) 1.8 /CMM (0.8-4.8); LYMPHOCYTES % (AUTO) 33.5 % (20.0-44.0); MEAN CORPUSCULAR HEMOGLOBIN 36 PG (26.0-33.0); MEAN CORPUSCULAR HGB CONC 34 g/dl (31.0-36.0); MEAN CORPUSCULAR VOLUME 107 fL (82-100); MONOCYTES # (AUTO) 0.7 /CMM (0.1-1.30); MONOCYTES % (AUTO) 13.2 % (2.0-12.0); NEUTROPHILS # (AUTO) 2.7 /CMM (1.8-8.9); NEUTROPHILS % (AUTO) 50.9 % (43.0-81.0); PLATELET COUNT (AUTO) 115 /CMM (150-450); RDW COEFFICIENT OF VARIATION 14.7 (11.5-15.0); RED BLOOD CELL COUNT(AUTO) 3.52 MIL/uL (4.0-5.2); WHITE BLOOD COUNT (AUTO) 5.4 K/uL (4.3-11.0)
[2018-01-03 06:44] LABS: INR 1.34 (0.87-1.13)
--- NOTE | 2018-01-03 07:07 | NUR ---
MS RN NOTES RECEIVED PT ON BED SLEEPING.ALERT ORIENTED X3. EPISODES OF CONFUSION. IV ACESS ON LW #22. PT ON 1 TO 1 SITTER. HEAD OF BED ELEVATED. SIDE RAILS UP. CALL LIGHT WITHIN REACH. WILL CONTINUE TO MONITOR PT CLOSELY.
[2018-01-03 07:13] LABS: ALANINE AMINOTRANSFERASE 22 U/L (12-78); ALBUMIN 3.1 g/dL (3.4-5.0); ALKALINE PHOSPHATASE 87 U/L (46-116); ASPARTATE AMINOTRANSFERASE 19 U/L (15-37); BILIRUBIN,TOTAL 0.8 mg/dL (0.2-1.0); CALCIUM, SERUM 8.6 mg/dL (8.5-10.1); CARBON DIOXIDE 22 mmol/L (21-32); CHLORIDE 111 mmol/L (98-107); CREATININE 0.9 mg/dL (0.6-1.3); GLUCOSE 106 mg/dL (74-106); MAGNESIUM 1.5 mg/dL (1.8-2.4); PHOSPHORUS 2.7 mg/dL (2.5-4.9); POTASSIUM 3.4 mmol/L (3.5-5.1); SODIUM SERUM 144 mmol/L (136-145); TOTAL PROTEIN, SERUM 6.7 g/dL (6.4-8.2); UREA NITROGEN, BLOOD 18 mg/dL (7-18)
[2018-01-03 08:00] VITALS: BP 156/85
[2018-01-03] MEDS: DILTIAZEM HCL CD 120 MG PO SCH (09:11)
[2018-01-03] MEDS: LOSARTAN POTASSIUM 50 MG TABLET PO SCH (09:11)
[2018-01-03] MEDS: MEMANTINE HCL 5 MG TABLET PO SCH ×2 (09:12→17:00)
[2018-01-03] MEDS: SOTALOL HCL 80 MG TABLET PO SCH ×2 (09:12→17:00)
[2018-01-03] MEDS: POTASSIUM CHLORIDE 20 MEQ TAB.PRT.SR PO SCH ×2 (10:00→10:56)
[2018-01-03] MEDS: Magnesium 1GM/D5W 100ML PREMIX 100 ML IV SCH ×3 (10:00→12:20)
--- NOTE | 2018-01-03 10:57 | NUR ---
MS RN NOTES PT CONFUSED AND STATED THAT IM NOT TAKING ANY MEDICINE ANYMORE. EXPLAINED THE RISK AND BENEFITS OF THE DRUG
--- NOTE | 2018-01-03 11:26 | NUR ---
MS RN NOTES PT CONFUSED WANTS TO GO HOME. AGITATED AND CONFUSED.
[2018-01-03 12:00] VITALS: BP_SYST 126; BP_SYST 127; BP_DIAS 75; BP_DIAS 76
[2018-01-03] MEDS: NEOMY SULF/BACITRAC ZN/POLY 15 GM TUBE TP SCH ×2 (14:15→18:37)
[2018-01-03 16:00] VITALS: BP 115/71
[2018-01-03] MEDS: WARFARIN SODIUM 5 MG TABLET PO SCH (17:00)
[2018-01-03] MEDS: ATORVASTATIN 40 MG TABLET PO SCH (17:35)
--- NOTE | 2018-01-03 17:36 | NUR ---
MS RN NOTES PT REFUSING MEDS. WANTS TO GO HOME. EXPLAINED THE RISK AND BENEFITS OF TAKING DRUGS. PATIENT STILL AGITATED.
--- NOTE | 2018-01-03 18:23 | NUR ---
MS RN NOTES NO ACUTE CHANGES NOTED DURING THE SHIFT. EPISODES OF CONFUSION AND AGITATION THROUGHOUT THE SHIFT. HEAD OF BED ELEVATED. SIDE RAILS UP. CALL LIGHT WITHIN REACH. WILL ENDORSE TO THE PM NURSE FOR LETI.
[2018-01-03 20:00] VITALS: BP 115/67
--- NOTE | 2018-01-03 20:00 | NUR ---
RN INITIAL NOTES PT RECEIVED AWAKE, WALKING AROUND UNIT. A/OX2-3, CONFUSED.1:1 SITTER AT BED SIDE, ON ROOM AIR, BREATHING EVEN AND UNLABORED. IN NO OBVIOUS DISTRESS. DENIES SOB OR PAIN AT THIS TIME. IV TO LAC. BED IN LOW/LOCKED POSITION WITH CALL LIGHT IN REACH. SIDE RAILS UPX3 WITH BED ALARM ON FOR SAFETY. WILL CONTINUE TO MONITOR
[2018-01-04] VITALS: BP 115/67
[2018-01-04 04:00] VITALS: BP 136/68
--- NOTE | 2018-01-04 06:30 | NUR ---
RN CLOSING NOTES PT ASLEEP, A/OX2, CONFUSION/FORGETFUL.1:1 SITTER AT BED SIDE. IV IN LAC PT REFUSED IV FLUIDS . NO S/S OF INFILTRATION. ORTHOSTATIC BP COMPLETED. BED REMAINS IN LOW/LOCKED POSITION WITH CALL LIGHT IN REACH. SIDE RAILS UPX3 AND BED ALARM ON FOR SAFETY. WILL ENDORSE TO DAY SHIFT RN LETI.
[2018-01-04 08:00] VITALS: BP 141/93
[2018-01-04] MEDS: SOTALOL HCL 80 MG TABLET PO SCH ×2 (09:09→17:00)
[2018-01-04] MEDS: DILTIAZEM HCL CD 120 MG PO SCH (09:10)
[2018-01-04] MEDS: LOSARTAN POTASSIUM 50 MG TABLET PO SCH (09:11)
[2018-01-04] MEDS: MEMANTINE HCL 5 MG TABLET PO SCH ×2 (09:13→17:00)
[2018-01-04] MEDS: NEOMY SULF/BACITRAC ZN/POLY 15 GM TUBE TP SCH ×2 (09:13→09:14)
[2018-01-04 13:31] LABS: INR 1.15 (0.87-1.13)
[2018-01-04 16:00] VITALS: BP 112/66
[2018-01-04] MEDS: WARFARIN SODIUM 5 MG TABLET PO SCH (17:00)
[2018-01-04] MEDS: ATORVASTATIN 40 MG TABLET PO SCH (17:55)
[2018-01-04 20:00] VITALS: BP 111/56
--- NOTE | 2018-01-04 20:00 | NUR ---
RN INITIAL NOTES PT RECEIVED AWAKE, WALKING AROUND UNIT. A/OX2-3, CONFUSED.1:1 SITTER WITH PT, ON ROOM AIR, BREATHING EVEN AND UNLABORED. IN NO OBVIOUS DISTRESS. DENIES SOB OR PAIN AT THIS TIME. NO IV AT THIS TIME. BED IN LOW/LOCKED POSITION WITH CALL LIGHT IN REACH. SIDE RAILS UPX3 WITH BED ALARM ON FOR SAFETY. WILL CONTINUE TO MONITOR
[2018-01-05] VITALS: BP 111/56
[2018-01-05 04:00] VITALS: BP 119/67
--- NOTE | 2018-01-05 06:12 | NUR ---
RN CLOSING NOTES PT ASLEEP, A/OX2, CONFUSION/FORGETFUL.1:1 SITTER AT BED SIDE. ORTHOSTATIC BP COMPLETED. BED REMAINS IN LOW/LOCKED POSITION WITH CALL LIGHT IN REACH. SIDE RAILS UPX3 AND BED ALARM ON FOR SAFETY. WILL ENDORSE TO DAY SHIFT RN LETI.
--- NOTE | 2018-01-05 07:36 | NUR ---
RESTING COMFORTABLY, NO DISTRESS NOTED. SITTER AT BEDSIDE. WILL CONTINUE TO MONITOR.
[2018-01-05 08:00] VITALS: BP 125/60
[2018-01-05] MEDS: IV NS 0.9% 1,000 ML IV PRN (08:19)
[2018-01-05] MEDS: MEMANTINE HCL 5 MG TABLET PO SCH ×2 (08:51→16:32)
[2018-01-05] MEDS: SOTALOL HCL 80 MG TABLET PO SCH ×2 (08:51→16:35)
[2018-01-05] MEDS: DILTIAZEM HCL CD 120 MG PO SCH (08:51)
[2018-01-05] MEDS: NEOMY SULF/BACITRAC ZN/POLY 15 GM TUBE TP SCH ×2 (08:55)
[2018-01-05] MEDS: LOSARTAN POTASSIUM 50 MG TABLET PO SCH (12:02)
--- NOTE | 2018-01-05 12:26 | NUR ---
COOPERATIVE BUT ILLOGICAL. AGREED TO HAVE NEW IV INSERTED. SITTING UP IN CHAIR. VOIDING WELL. SITTER AT BEDSIDE. WILL CONT TO MONITOR.
--- NOTE | 2018-01-05 15:55 | NUR ---
RN NOTES RECEIVED PT FROM DAY SHIFT SHIFT RN, PT RESTING IN BED WITH SITTER AT BEDSIDE. ON 2L NC SATING WELL NO SOB. NO IVF. BED LOCKED AND IN LOWEST POSITION, SIDE RAILS UPX3, WILL CONT TO JESSIE. Addendum: 01/05/18 at 1605 by CARMEN SEGOVIA RN ERROR
[2018-01-05] MEDS: WARFARIN SODIUM 5 MG TABLET PO SCH (16:34)
[2018-01-05 16:35] VITALS: BP 104/55
[2018-01-05] MEDS: ATORVASTATIN 40 MG TABLET PO SCH (18:00)
--- NOTE | 2018-01-05 18:23 | NUR ---
REPORT GIVEN TO ARSLAN OF [facility]. PT WAS TAKEN VIA AMBULANCE. HL REMOVED.
== END 2018-01-05 18:19 | DRG 312 ==
LOC: ER 14:26 → TELE1 18:22 → MEDSG1 01-02 10:17
PROVIDERS: ADMIT Internal Medicine; ATTEND Internal Medicine
DX: I95.1 Orthostatic hypotension (principal); N17.9 Acute kidney failure, unspecified; G93.40 Encephalopathy, unspecified; D68.59 Other primary thrombophilia; I27.20 Pulmonary hypertension, unspecified; I50.32 Chronic diastolic (congestive) heart failure; I11.0 Hypertensive heart disease with heart failure; I48.91 Unspecified atrial fibrillation; I48.92 Unspecified atrial flutter; W18.30XA Fall on same level, unspecified, initial encounter; E78.5 Hyperlipidemia, unspecified; E87.6 Hypokalemia; Z79.01 Long term (current) use of anticoagulants; Z96.649 Presence of unspecified artificial hip joint; Z95.0 Presence of cardiac pacemaker; Z91.81 History of falling; Z91.14 Patient's other noncompliance with medication regimen; Z90.49 Acquired absence of other specified parts of digestive tract; F10.10 Alcohol abuse, uncomplicated; Y90.0 Blood alcohol level of less than 20 mg/100 ml; Z98.890 Other specified postprocedural states; Z88.1 Allergy status to other antibiotic agents; Z88.0 Allergy status to penicillin; Z88.8 Allergy status to other drugs, medicaments and biological substances; Z79.899 Other long term (current) drug therapy; E03.9 Hypothyroidism, unspecified; S61.210A Laceration without foreign body of right index finger without damage to nail, initial encounter; Y92.9 Unspecified place or not applicable; I70.0 Atherosclerosis of aorta; I67.2 Cerebral atherosclerosis; F03.90 Unspecified dementia, unspecified severity, without behavioral disturbance, psychotic disturbance, mood disturbance, and anxiety; S09.90XA Unspecified injury of head, initial encounter
CPT/HCPCS: 36415; 70450-TC; 70486-TC; 71045-TC; 80048-TC; 80053-TC; 80061-TC; 80076-TC; 80305; 82962-TC; 83735-TC; 84100-TC; 84443-TC; 84484-TC; 85025-TC; 85610-TC; 85730-TC; 87081-TC; 93880-TC; A4216; A4606; A6402; A6403; G0480; J3475; J7030; P9047; Z7610

== ENCOUNTER 2018-01-30 20:55 | Emergency (ER) | payer MEDICARE, OTHER ==
[~2018-01-30] VITALS: Ht 167.6 cm; Wt 81.6 kg
[~2018-01-30 20:55] MED LIST changes: +WARF-68 PO; -WARF2TAB6 PO
--- NOTE | 2018-01-30 21:00 | NUR ---
"FOND AT HOME DRUNK; FSBS 99G/DL"0 GIVEN NAD NOTED, VSS, RESP EVEN AND UNLABORED, PT WAS PUT ON MONITOR, WAITING FOR MD HARRIS.
[2018-01-30 23:06] VITALS: BP 156/95
--- NOTE | 2018-01-30 23:07 | NUR ---
Patient discharged to home in stable condition. Written and verbal after care instructions given. Patient verbalizes understanding of instruction.
== END 2018-01-30 23:08 | disposition home or self-care (01) ==
LOC: ER 20:57
DX: F10.129 Alcohol abuse with intoxication, unspecified (principal); I48.91 Unspecified atrial fibrillation; I11.0 Hypertensive heart disease with heart failure; I50.9 Heart failure, unspecified; E78.00 Pure hypercholesterolemia, unspecified; Z90.89 Acquired absence of other organs; Z95.0 Presence of cardiac pacemaker; Z88.0 Allergy status to penicillin; Z88.1 Allergy status to other antibiotic agents; Z88.8 Allergy status to other drugs, medicaments and biological substances; Z60.2 Problems related to living alone; Z79.01 Long term (current) use of anticoagulants
CPT/HCPCS: A4606; Z7610

== ENCOUNTER 2018-01-31 08:55 | Inpatient (IN) | payer MEDICARE, OTHER ==
[~2018-01-31] VITALS: Ht 162.6 cm; Wt 68.5 kg
--- NOTE | 2018-01-31 09:05 | NUR ---
BIBRA FROM HOME FOR POSSIBLE ETOH. PT IS AWAKE AND ALERT. IN NO DISTRESS. VSS.
[2018-01-31 09:25] LABS: BASOPHILS % (AUTO) 0.2 % (0.0-2.0); EOSINOPHILS % (AUTO) 2.7 % (0.0-6.0); HEMATOCRIT 41 % (33-45); HEMOGLOBIN 13.6 g/dL (11.5-14.8); LYMPHOCYTES % (AUTO) 45.3 % (20.0-44.0); MEAN CORPUSCULAR HGB CONC 33 g/dl (31.0-36.0); MEAN CORPUSCULAR VOLUME 103 fL (82-100); MONOCYTES # (AUTO) 0.5 /CMM (0.1-1.30); MONOCYTES % (AUTO) 11.5 % (2.0-12.0); NEUTROPHILS # (AUTO) 1.7 /CMM (1.8-8.9); NEUTROPHILS % (AUTO) 40.3 % (43.0-81.0); PLATELET COUNT (AUTO) 120 /CMM (150-450); RDW COEFFICIENT OF VARIATION 13.2 (11.5-15.0); RED BLOOD CELL COUNT(AUTO) 4.02 MIL/uL (4.0-5.2); WHITE BLOOD COUNT (AUTO) 4.3 K/uL (4.3-11.0)
[2018-01-31] MEDS ORDERED: IV NS 0.9% 1,000 ML BAG IV ONE (09:30)
--- NOTE | 2018-01-31 09:32 | NUR ---
EKG IN PROGRESS
[2018-01-31 09:35] LABS: CALCIUM, SERUM 8.5 mg/dL (8.5-10.1); CARBON DIOXIDE 25 mmol/L (21-32); CHLORIDE 108 mmol/L (98-107); CREATININE 1.1 mg/dL (0.6-1.3); GLUCOSE 94 mg/dL (74-106); POTASSIUM 2.9 mmol/L (3.5-5.1); SODIUM SERUM 144 mmol/L (136-145); UREA NITROGEN, BLOOD 9 mg/dL (7-18)
[2018-01-31 09:36] LABS: ALCOHOL, BLOOD 238 mg/dL (0-0)
--- NOTE | 2018-01-31 09:37 | NUR ---
PT TAKEN TO CT
[2018-01-31 09:39] LABS: INR 0.93 (0.85-1.15)
[2018-01-31 09:43] LABS: TROPONIN I < 0.017 ng/mL (0.00-0.056)
[2018-01-31] MEDS ORDERED: POTASSIUM CHLORIDE 20 MEQ TAB.PRT.SR PO ONE ×2 (10:30→10:50)
[2018-01-31 10:51] LABS: APPEARANCE,URINE Slightly Cloudy (CLEAR); BILIRUBIN,URINE Negative (NEGATIVE); BLOOD, URINE Negative Ery/uL (NEGATIVE); COLOR,URINE Yellow (YELLOW); KETONES,URINE Negative (NEGATIVE); LEUKOCYTE ESTERASE ,URINE Small (NEGATIVE); NITRITE, URINE Negative (NEGATIVE); PROTEIN,URINE Negative (NEGATIVE); UGLUCOSE Negative (NEGATIVE); UROBILINOGEN,URINE 0.2 EU/dL (0.2)
[2018-01-31 10:58] LABS: BACTERIA,URINE Few /HPF (None Seen); RBC,URINE 0-3 /HPF (0-2); SQUAMOUS EPITHELIAL CELL,UR Few /HPF (None Seen)
[2018-01-31] MEDS ORDERED: Magnesium 1GM/D5W 100ML PREMIX 100 ML IV ONE (11:29)
[2018-01-31] MEDS ORDERED: CEFTRIAXONE 1GM BAG (ER ONLY) 50 ML IV ONE (11:29)
[2018-01-31] MEDS ORDERED: Magnesium 1GM/D5W 100ML PREMIX PIGGYBACK IV ONE (11:30)
[2018-01-31] MEDS: CEFTRIAXONE 1 G in IV D5W 50 ML IV SCH (11:30)
[2018-01-31] MEDS ORDERED: LORAZEPAM INJ 2 MG/ML VIAL ONE (14:09)
--- NOTE | 2018-01-31 14:14 | NUR ---
PT TRANSPORTED TO [facility]
[2018-01-31] MEDS ORDERED: LORAZEPAM INJ 2 MG/ML VIAL IV ONE (14:30)
[2018-01-31 15:00] VITALS: BP 151/62
--- NOTE | 2018-01-31 15:00 | NUR ---
THREAT ANALYST NOTES RECEVED PATIENT FROM ER. ALERT, ORIENTED X 1 WITH CONFUSION WITH THE DIAGNOSIS OF ETOH ABUSE UNDER THE CARE OF DOCTOR JAIMES. HOSPITAL ORIENTATION DONE. BED ALARM IS ON, BED IS IN LOWER POSITION, BOTH SIDE RAILS ARE UP FOR PATIENT SAFETY, CALL LIGHT WITHIN REACH. VITAL SIGNS DONE, BODY CHECK DONE NO SOB, RESPIRATION EVEN AND UNLABORED, PATIENT PLACED ON TELEMONITOR AFIB HR 120, NO COMPLINE OF CHEST PAIN. WILL CONTINUE TO MONITOR CLOSELY.CALL DOCTOR JAIMES FOR ADMISSION ORDERS
--- NOTE | 2018-01-31 16:02 | NUR ---
DIETARY ASSISTANT NOTES NOTIFIED DR JAIMES PATIENT IS AFUTTER/AFIB ON TELEMONITOR , HR 104 AND INFORMED THAT WE NEED ADMISSION ORDERS. STATED OK AND NO NEW ORDERS GIVEN AT THIS TIME. WILL F/U.
[2018-01-31] MEDS ORDERED: ONDANSETRON HCL/PF 4 MG/2 ML VIAL IVP PRN (16:30)
[2018-01-31] MEDS ORDERED: METOPROLOL TARTRATE INJ 5 MG/5 ML AMPUL IVP PRN (16:30)
[2018-01-31] MEDS ORDERED: MAG HYDROX/AL HYDROX/SIMETH 30 ML UDC PO PRN (16:30)
[2018-01-31] MEDS ORDERED: MAGNESIUM HYDROXIDE 30 ML UDC PO PRN (16:30)
[2018-01-31] MEDS ORDERED: ZOLPIDEM TARTRATE 5 MG TABLET PO PRN (16:30)
[2018-01-31] MEDS ORDERED: ACETAMINOPHEN 325 MG TABLET PO PRN (16:30)
[2018-01-31] MEDS ORDERED: HYDROCODONE/APAP 5/325MG 1 EACH TABLET PO PRN (16:30)
[2018-01-31] MEDS ORDERED: Z GUARD REMEDY 2 OZ OINT TP PRN (16:30)
[2018-01-31] MEDS: IV NS 0.9% 1,000 ML IV PRN (16:47)
--- NOTE | 2018-01-31 17:07 | NUR ---
HORTICULTURAL SERVICES SUPERVISOR NOTE IVF STARTED ORDERED NOT IN ACUTE DISTRESS PLACED ON 2L NA SAT 88% WILL F\ U
[2018-01-31] MEDS: ATORVASTATIN 40 MG TABLET PO SCH (17:16)
[2018-01-31] MEDS: FOLIC ACID 1 MG TABLET PO SCH (17:16)
[2018-01-31] MEDS: MEMANTINE HCL 5 MG TABLET PO SCH (17:17)
[2018-01-31] MEDS: SOTALOL HCL 80 MG TABLET PO SCH (17:18)
[2018-01-31] MEDS: Thiamine 100 MG in IV D5W 50 ML IV SCH (17:31)
--- NOTE | 2018-01-31 18:28 | NUR ---
NUCLEAR MEDICINE SUPERVISOR NOTE PATIENT IN BED, ALL NEEDS ATTENDED, NOT IN ACUTE DISTRESS, HAVING DINNER , ABLE TO EAT WELL 75% OF DIET , CONT ON IVF ORDERED, KEEP CLEAN DRY ,
[2018-01-31 20:00] VITALS: BP 138/85
--- NOTE | 2018-01-31 20:14 | NUR ---
RN NOTES RECEIVED PATIENT AWAKE IN BED WITH NO RESPIRATORY DISTRESS OR SHORTNESS OF BREATH. BREATHING EVEN AND UNLABORED. ROOM AIR TOLERATING WELL. NO COMPLAINT OF PAIN OR DISCOMFORT. ALERT AND ORIENTED WITH EPISODES OF CONFUSION. VITAL SIGNS WNL. KEPT CLEAN AND DRY. WILL CONTINUE TO MONITOR.
[2018-01-31 20:23] VITALS: BP 138/85
[2018-02-01] VITALS: BP 142/82
[2018-02-01] MEDS: IV NS 0.9% 1,000 ML IV PRN ×2 (02:08→11:18)
[2018-02-01 04:00] VITALS: BP 152/88
--- NOTE | 2018-02-01 06:31 | NUR ---
RN CLOSING NOTES ALERT AND ORIENTED WITH EPISODES OF FORGETFULNESS AND DISORIENTATION, IN BED RESTING COMFORTABLY. NO DISTRESS. BREATHING EVEN AND UNLABORED. NO COMPLAINT OF PAIN OR DISCOMFORT. VITAL SIGNS WNL. KEPT CLEAN AND DRY. WILL ENDORSE TO AM SHIFT FOR CONTINUITY OF CARE.
[2018-02-01 06:35] LABS: BASOPHILS % (AUTO) 0.4 % (0.0-2.0); EOSINOPHILS % (AUTO) 2.8 % (0.0-6.0); HEMATOCRIT 38 % (33-45); LYMPHOCYTES # (AUTO) 1.5 /CMM (0.8-4.8); LYMPHOCYTES % (AUTO) 30.2 % (20.0-44.0); MEAN CORPUSCULAR HGB CONC 34 g/dl (31.0-36.0); MEAN CORPUSCULAR VOLUME 104 fL (82-100); MONOCYTES # (AUTO) 0.5 /CMM (0.1-1.30); NEUTROPHILS # (AUTO) 2.9 /CMM (1.8-8.9); NEUTROPHILS % (AUTO) 57.6 % (43.0-81.0); PLATELET COUNT (AUTO) 127 /CMM (150-450); RDW COEFFICIENT OF VARIATION 14.1 (11.5-15.0); RED BLOOD CELL COUNT(AUTO) 3.71 MIL/uL (4.0-5.2)
[2018-02-01 06:48] LABS: CALCIUM, SERUM 7.9 mg/dL (8.5-10.1); CARBON DIOXIDE 27 mmol/L (21-32); CHLORIDE 111 mmol/L (98-107); CREATININE 1.1 mg/dL (0.6-1.3); GLUCOSE 94 mg/dL (74-106); MAGNESIUM 1.4 mg/dL (1.8-2.4); POTASSIUM 3.7 mmol/L (3.5-5.1); SODIUM SERUM 144 mmol/L (136-145); UREA NITROGEN, BLOOD 11 mg/dL (7-18)
[2018-02-01 06:56] LABS: CHOLESTEROL 145 mg/dL (<200); HDL CHOLESTEROL 49 mg/dL (40-60); LDL 77 mg/dL (0-99); THYROID STIMULATING HORMONE 3.107 uIU/mL (0.358-3.74); TRIGLYCERIDES 139 mg/dL (30-150)
--- NOTE | 2018-02-01 07:30 | NUR ---
EXECUTIVE SOUS CHEF INITIAL NOTE RECEIVED PATIENT LYING IN BED RESTING COMFORTABLY AOX 1-2, SPEECH CLEAR, DENIES PAIN. ON ROOM AIR NO CARDIAC OR RESPIRATORY DISTRESS, BRP, TELE AFIB ON MONITOR HR 70S. BED IN LOW LOCKED POSITION BED ALARM IN PLACE, PT IS AMBULATORY BUT FORGETFUL NEEDS TO BE REDIRECTED. CALL LIGHT WITHIN REACH. WILL CONTINUE TO MONITOR FOR ANY CHANGES IN CONDITION.
[2018-02-01 08:00] VITALS: BP 138/94
[2018-02-01] MEDS: MEMANTINE HCL 5 MG TABLET PO SCH ×2 (08:20→16:51)
[2018-02-01] MEDS: DILTIAZEM HCL CD 120 MG PO SCH (08:21)
[2018-02-01] MEDS: FOLIC ACID 1 MG TABLET PO SCH (08:21)
[2018-02-01] MEDS: SOTALOL HCL 80 MG TABLET PO SCH (08:21)
[2018-02-01] MEDS: CEFTRIAXONE 1 G in IV D5W 50 ML IV SCH (11:05)
[2018-02-01 12:00] VITALS: BP 120/74
[2018-02-01] MEDS: Magnesium 1GM/D5W 100ML PREMIX 100 ML IV SCH ×4 (12:37→15:52)
[2018-02-01] MEDS: LORAZEPAM INJ 2 MG/ML VIAL IV PRN (14:57)
--- NOTE | 2018-02-01 15:17 | NUR ---
PATIENT ANXIOUS VERBALIZING " I NEED TO GET OUT OF HERE",TRYING TO PULL IV OUT. DR. JAIMES NOTIFIED OBTAINED ORDERS FOR SITTER.
[2018-02-01 16:00] VITALS: BP 104/59
[2018-02-01] MEDS: Thiamine 100 MG in IV D5W 50 ML IV SCH (16:51)
[2018-02-01] MEDS: ATORVASTATIN 40 MG TABLET PO SCH (17:03)
--- NOTE | 2018-02-01 19:45 | NUR ---
MS RN OPENING NOTES: PATIENT SITTING ON CHAIR OUTSIDE ROOM, APPEARS AOX2, ON ROOM AIR, BREATHING EVEN AND UNLABORED. APPEARS CALM AND IN NO DISTRESS. PIV OVER L WRIST G 22 INTACT AND PATENT TO FLUSH, PATIENT DOES NOT WANT TO BE HOOKED TO IV FLUID AT THIS TIME. PROVIDED FOR COMFORT AND SAFETY. SITTER AT BEDSIDE. WILL CONT TO MONITOR.
[2018-02-01 20:00] VITALS: BP 136/75
[2018-02-02] MEDS: LORAZEPAM INJ 2 MG/ML VIAL IV PRN ×4 (00:25→23:04)
--- NOTE | 2018-02-02 00:34 | NUR ---
RN NOTES: PATIENT IS VERY RESTLESS AND AGITATED, KEPT SAYING THAT HER THINGS ARE "NOT WHERE THEY ARE SUPPOSED TO BE", ACCUSED STAFF OF TAKING THINGS AND KEPT GETTING OUT OF ROOM. REORIENTED PATIENT. PLACED PATIETN BACK TO BED, ADMINISTERED ATIVAN 1 MG IV. SITTER AT BEDSIDE. WILL CONT TO MONITOR.
--- NOTE | 2018-02-02 04:44 | NUR ---
RN NOTES: PATIENT SUDDENLY WOKE UP, WAS VERY AGITATED, YELLING AND GOT OUT OF BED, WALKING IN HALLWAYS, THREW THE TRASH BIN AND TRIED TO PULL OUT IV. EVENTUALLY CONVINCED PATIENT TO GO BACK TO BED. BP ELEVATED: 170/99, HR: 99, O2 SAT 98%. ADMINISTERED ATIVAN 1 MG IV, THEN WILL RECHECK BP AFTER PATIENT IS MUCH CALMER. SITTER AT BEDSIDE.
[2018-02-02 05:30] VITALS: BP 153/81
--- NOTE | 2018-02-02 05:49 | NUR ---
RN NOTES: PATIENT APPEARS MORE CALM, WOKE UP TO GO TO THE BATHROOM, THEN WENT BACK TO BED CALMLY. BP RECHECKED AT 153/81, HR: 82, O2 SAT 98%. WILL CONT TO MONITOR.
--- NOTE | 2018-02-02 06:20 | NUR ---
RN NOTES: PATIENT REFUSED BLOOD DRAW AT THIS TIME. PRIZE FIGHTER TO RETURN LATER.
--- NOTE | 2018-02-02 07:00 | NUR ---
MS RN CLOSING NOTES: PATIENT IN BED, AOX1, ON ROOM AIR, BREATHING EVEN AND UNLABORED. PROVIDED FOR COMFORT AND SAFETY. BED IN LOWEST AND LOCKED POSITION, SIDERAILS UP X3, SITTER AT BEDSIDE. WILL ENDORSE TO AM RN FOR LETI.
--- NOTE | 2018-02-02 07:30 | NUR ---
received pt. in am,rambling on,but cooperative.
[2018-02-02 08:00] VITALS: BP 136/100
[2018-02-02] MEDS: DILTIAZEM HCL CD 120 MG PO SCH (09:15)
[2018-02-02] MEDS: MEMANTINE HCL 5 MG TABLET PO SCH ×2 (09:15→17:00)
[2018-02-02] MEDS: SOTALOL HCL 80 MG TABLET PO SCH (09:16)
[2018-02-02] MEDS: FOLIC ACID 1 MG TABLET PO SCH (09:18)
[2018-02-02 09:54] LABS: CALCIUM, SERUM 8.5 mg/dL (8.5-10.1); CARBON DIOXIDE 20 mmol/L (21-32); CHLORIDE 112 mmol/L (98-107); GLUCOSE 146 mg/dL (74-106); MAGNESIUM 1.8 mg/dL (1.8-2.4); PHOSPHORUS 3.3 mg/dL (2.5-4.9); POTASSIUM 3.3 mmol/L (3.5-5.1); SODIUM SERUM 144 mmol/L (136-145); UREA NITROGEN, BLOOD 10 mg/dL (7-18)
--- NOTE | 2018-02-02 10:30 | NUR ---
son in and attempting to sign pt. out ama.text to dr. dickinson regarding disch. on pt. now son unable to find pt. home keys at bedside.son suddenly left.
[2018-02-02] MEDS: CEFTRIAXONE 1 G in IV D5W 50 ML IV SCH (11:46)
--- NOTE | 2018-02-02 15:30 | NUR ---
dr. dickinson in and wrote dc order,meds included.
--- NOTE | 2018-02-02 16:00 | NUR ---
refused afternoon vs.sitter at bedside.
--- NOTE | 2018-02-02 16:04 | NUR ---
pt. squirming about bed and restless,medicated with ativan iv.sitter remains at bedside.
[2018-02-02] MEDS: THIAMINE HCL 100 MG TABLET PO SCH (17:00)
--- NOTE | 2018-02-02 17:00 | NUR ---
pm meds held as pt. very groggy.
--- NOTE | 2018-02-02 17:40 | NUR ---
call out to son by assigned rn informing him disch. order written.message left on answer machine.
[2018-02-02] MEDS: ATORVASTATIN 40 MG TABLET PO SCH (17:46)
--- NOTE | 2018-02-02 18:45 | NUR ---
second call out to son-leaving message regarding discharge order.no word yet.
--- NOTE | 2018-02-02 19:00 | NUR ---
RN NOTES RECEIVE PT IN BED A/O X1, AWAITING TO CALL BACK SON. PT NO S/S OF DISTRESS, STABLE, SAFETY MEASURES IN PLACE, CALL LIGHT WITHIN REACH, WILL CONTINUE TO MONITOR
[2018-02-02 20:00] VITALS: BP 154/75
--- NOTE | 2018-02-02 21:14 | NUR ---
Son called back per son unable to pick his mother tonight and will pick her up tomorrow at 0900 despite explaining that he needs to turkey picker tonight. per son he really cant. Charge nurse made aware.
[2018-02-02] MEDS: IV NS 0.9% 1,000 ML IV PRN (21:40)
--- NOTE | 2018-02-02 23:04 | NUR ---
RN NOTES: PATIENT AGITATED AND RESTLESS YELLING IN THE BED SAYING WHERE IS MY JACKET KEPT GETTING OUT OF ROOM...REORIENTED PATIENT, PLACED BACK TO BED. NON PHARMACOLOGICAL IMPLEMENTED INEFFECTIVE WILL GIVE ATIVAN 1 MG PER ORDER
--- NOTE | 2018-02-03 00:04 | NUR ---
MS RN NOTES PT REMAINS CALM VS WNL MEDICATION EFFECTIVE
[2018-02-03 04:00] VITALS: BP 144/87
--- NOTE | 2018-02-03 06:31 | NUR ---
MS RN NOTES PT ASLEEP COMFORTABLY IN BED AND EASILY AWAKEN HEAD OF BED ELEVATED FOR BETTER LUNG EXPANSION AND GOOD CIRCULATION. TOLERATING ROOM AIR 98% NOT IN RESPIRATORY DISTRESS. . NO COMPLAINS OF PAIN. STABLE CONDITION. AFEBRILE. SITTER AT BEDSIDE, PT KEPT CLEAN AND DRY AND COMFORT. NURSING CARE RENDERED. NEEDS ATTENDED AND ANTICIPATED. GOOD SKIN CARE PROVIDED. ON LOW BED TO ENSURE SAFETY, CALL LIGHT WITHIN REACH, WILL ENDORSE TO THE NEXT SHIFT CONTINUE PLAN OF CARE
--- NOTE | 2018-02-03 07:19 | NUR ---
REPORT RECEIVED AT THE BEDSIDE. PATIENT IS RESTING COMFORTABLY IN THE BED. NO SOB OR DISTRESS NOTED AT THIS TIME. PATIENT DOES NOT APPEAR TO BE IN PAIN, NO FACIAL GRIMACE NOTED. BED IN A LOW POSITION, SITTER IS AT THE BEDSIDE. PT FOR DISCHARGE AROUND 0900. PAPERWORK READY FOR THE SON TO SIGN. WILL MONITOR.
[2018-02-03 08:00] VITALS: BP 126/73
[2018-02-03 08:25] VITALS: BP 126/73
[2018-02-03] MEDS: SOTALOL HCL 80 MG TABLET PO SCH (08:25)
[2018-02-03] MEDS: THIAMINE HCL 100 MG TABLET PO SCH (08:25)
[2018-02-03] MEDS: FOLIC ACID 1 MG TABLET PO SCH (08:25)
[2018-02-03] MEDS: MEMANTINE HCL 5 MG TABLET PO SCH ×2 (08:25→17:02)
[2018-02-03] MEDS: DILTIAZEM HCL CD 120 MG PO SCH (08:25)
--- NOTE | 2018-02-03 08:42 | NUR ---
CALLED PATIENT'S SON, LUIS, TO ASK IF HE COULD BRING SHOES AND SOME PANTS FOR HIS MOTHER WHEN HE COMES TO PICK HER UP. LUIS STATES HE WILL NOT BE ABLE TO COME FOR A COUPLE HOURS, BUT STATES EITHER HIMSELF, OR AN UNCLE WILL BE HERE TO NEGATIVE DEVELOPER THE PATIENT BY NOON AND WILL BRING CLOTHING.
--- NOTE | 2018-02-03 09:00 | NUR ---
PT REFUSED MORNING CARDIZEM. STATES "I DON'T NEED THAT." EXPLAINED TO THE PATIENT THAT THIS IS HER NORMAL HOME BLOOD PRESSURE MEDICATION, BUT PATIENT STILL REFUSES. MEDICATION RETURNED.
--- NOTE | 2018-02-03 11:19 | NUR ---
PT HAS PULLED OUT IV AND IS REFUSING NEW IV OR IV ABX. STATES "I'M GOING HOME, LEAVE ME ALONE." EXPLAINED THE BENEFIT OF THE ABX, BUT PATIENT IS STILL REFUSING. PT HAS DISCHARGE ORDER AND NO HOME ABX ORDERED. WILL ATTEMPT AGAIN LATER.
--- NOTE | 2018-02-03 11:24 | NUR ---
CALLED SON, LUIS, ON [facility] FOR PICKUP FOR THE PATIENT. NO ANSWER, MESSAGE LEFT.
[2018-02-03] MEDS: CEFTRIAXONE 1 G in IV D5W 50 ML IV SCH (11:30)
--- NOTE | 2018-02-03 12:40 | NUR ---
AGAIN, CALLED PTS SONLUIS, AND LEFT A MESSAGE ABOUT ETA FOR PATIENT PICKUP. LEFT RETURN CALL NUMBER.
--- NOTE | 2018-02-03 12:54 | NUR ---
ATTEMPTED TO REINSERT IV TO GIVE DUE MEDICATION. PATIENT REFUSING, STATES "GET AWAY FROM ME, I DON'T NEED IT." INFORMED CHARGE NURSE SOON. STATES TO LEAVE THE PATIENT SHE IS ALERT ENOUGH TO MAKE THIS DECISION. WILL INFORM MD WHEN ABLE. STILL WAITING FOR CALL BACK FROM SON WITH DISCHARGE TIME.
--- NOTE | 2018-02-03 13:14 | NUR ---
SOON, TOOL ROOM MACHINIST, RECEIVED A CALL THAT SOMEONE WILL BE HERE TO SPRAY OPERATOR THE PATIENT BETWEEN 5 AND 6 PM. ALL DISCHARGE PAPERWORK READY FOR SIGNING.
[2018-02-03] MEDS: ATORVASTATIN 40 MG TABLET PO SCH (17:02)
--- NOTE | 2018-02-03 17:44 | NUR ---
GAVE INSTRUCTIONS TO PATIENT FAMILY PER DR JAIMES AND ABLE TO UNDERSTAND. FAMILY, SON, SIGNED DISCHARGE PAPERWORK AND ACCOUNTED FOR BELONGINGS. PATIENT HAS NO SOB OR DISTRESS AND DENIES PAIN. IV WAS ALREADY REMOVED EARLIER TODAY, NO BLEEDING NOTED AT THE SITE. PT REFUSED FLU AND PNEUMONIA VACCINES, NEITHER WERE ADMINISTERED. PATIENT GIVEN A PAIR OF PANTS ON DISCHARGE THERE WERE NONE PRESENT ON ADMISSION. PATIENT LEFT IN STABLE CONDITION, VIA WHEELCHAIR, WITH FAMILY TO HOME. PATIENT FAMILY REPORTS SHE HAS A WALKER AT HOME.
== END 2018-02-03 17:37 | disposition home health service (06) | DRG 896 ==
LOC: ER 08:58 → TELE1 12:59 → MEDSG1 02-01 14:52
PROVIDERS: ADMIT Internal Medicine; ATTEND Internal Medicine
DX: F10.129 Alcohol abuse with intoxication, unspecified (principal); G92 Toxic encephalopathy; D68.59 Other primary thrombophilia; G31.2 Degeneration of nervous system due to alcohol; E83.42 Hypomagnesemia; I50.32 Chronic diastolic (congestive) heart failure; I11.0 Hypertensive heart disease with heart failure; N39.0 Urinary tract infection, site not specified; I27.20 Pulmonary hypertension, unspecified; F03.90 Unspecified dementia, unspecified severity, without behavioral disturbance, psychotic disturbance, mood disturbance, and anxiety; E87.6 Hypokalemia; Y90.7 Blood alcohol level of 200-239 mg/100 ml; E78.5 Hyperlipidemia, unspecified; I25.10 Atherosclerotic heart disease of native coronary artery without angina pectoris; Z79.01 Long term (current) use of anticoagulants; Z95.0 Presence of cardiac pacemaker; Z82.49 Family history of ischemic heart disease and other diseases of the circulatory system; Z88.0 Allergy status to penicillin; I48.91 Unspecified atrial fibrillation
CPT/HCPCS: 36415; 70450-TC; 71045-TC; 80048-TC; 80061-TC; 81000-TC; 83735-TC; 84100-TC; 84443-TC; 84484-TC; 85025-TC; 85730-TC; 87081-TC; A4606; G0480; J0696; J2060; J3411; J3475; J7030; J7060; Z7610

== ENCOUNTER 2018-02-03 19:47 | Emergency (ER) | payer MEDICARE, BC ==
[~2018-02-03] VITALS: Ht 167.6 cm; Wt 70.3 kg
[~2018-02-03 19:47] MED LIST changes: -WARF-68 PO
--- NOTE | 2018-02-03 19:55 | NUR ---
TO BED 15 AN 83 YO FEMALE PATIENT BIBRA#88 C/O GENERALIZED WEAKNESS X 1 WEEK. PATIENT IS ALERT AND ORIENTED X1, VERBAL, NAD NOTED. VSS. SKIN WARM AND DRY.
[2018-02-03] MEDS ORDERED: ONDANSETRON HCL/PF 4 MG/2 ML VIAL ONE (20:21)
[2018-02-03] MEDS ORDERED: ACETAMINOPHEN ES 500 MG TABLET ONE (20:21)
[2018-02-03 20:24] LABS: BASOPHILS % (AUTO) 0.8 % (0.0-2.0); EOSINOPHILS % (AUTO) 2.2 % (0.0-6.0); HEMATOCRIT 39 % (33-45); HEMOGLOBIN 13.2 g/dL (11.5-14.8); LYMPHOCYTES # (AUTO) 1.4 /CMM (0.8-4.8); LYMPHOCYTES % (AUTO) 26.6 % (20.0-44.0); MEAN CORPUSCULAR HGB CONC 33 g/dl (31.0-36.0); MEAN CORPUSCULAR VOLUME 102 fL (82-100); MONOCYTES # (AUTO) 0.6 /CMM (0.1-1.30); MONOCYTES % (AUTO) 10.6 % (2.0-12.0); NEUTROPHILS # (AUTO) 3.3 /CMM (1.8-8.9); NEUTROPHILS % (AUTO) 59.8 % (43.0-81.0); PLATELET COUNT (AUTO) 151 /CMM (150-450); RDW COEFFICIENT OF VARIATION 13.3 (11.5-15.0); RED BLOOD CELL COUNT(AUTO) 3.89 MIL/uL (4.0-5.2); WHITE BLOOD COUNT (AUTO) 5.4 K/uL (4.3-11.0)
--- NOTE | 2018-02-03 20:28 | NUR ---
started a saline lock on the left wrist g20.
[2018-02-03] MEDS ORDERED: ACETAMINOPHEN ES 500 MG TABLET PO ONE (20:30)
[2018-02-03] MEDS ORDERED: ONDANSETRON HCL/PF 4 MG/2 ML VIAL IVP ONE (20:30)
--- NOTE | 2018-02-03 20:31 | NUR ---
medicated patient as ordered.
--- NOTE | 2018-02-03 20:32 | NUR ---
xr at bedside.
[2018-02-03 20:45] LABS: CALCIUM, SERUM 8.7 mg/dL (8.5-10.1); CARBON DIOXIDE 25 mmol/L (21-32); CHLORIDE 108 mmol/L (98-107); CREATININE 1.1 mg/dL (0.6-1.3); GLUCOSE 104 mg/dL (74-106); POTASSIUM 3.4 mmol/L (3.5-5.1); SODIUM SERUM 143 mmol/L (136-145); UREA NITROGEN, BLOOD 10 mg/dL (7-18)
[2018-02-03 20:51] LABS: ALANINE AMINOTRANSFERASE 22 U/L (12-78); ALBUMIN 3.1 g/dL (3.4-5.0); ALKALINE PHOSPHATASE 120 U/L (46-116); ASPARTATE AMINOTRANSFERASE 21 U/L (15-37); BILIRUBIN,DIRECT 0.2 mg/dL (0.0-0.2); BILIRUBIN,TOTAL 0.7 mg/dL (0.2-1.0); LIPASE 148 U/L (73-393); TOTAL PROTEIN, SERUM 6.7 g/dL (6.4-8.2)
[2018-02-03 20:53] LABS: TROPONIN I < 0.017 ng/mL (0.00-0.056)
--- NOTE | 2018-02-03 21:15 | NUR ---
URINE COLLECTED VIA CLEAN CATCH, CALLED LAB FOR PICKUP.
--- NOTE | 2018-02-03 21:46 | NUR ---
SPOKE WITH LUIS THE SON OF PATIENT AND HE SAID HE CANT AIRLINE PILOT PATIENT AT THIS TIME.
[2018-02-03 21:53] LABS: APPEARANCE,URINE CLEAR (CLEAR); BILIRUBIN,URINE NEGATIVE (NEGATIVE); BLOOD, URINE NEGATIVE Ery/uL (NEGATIVE); COLOR,URINE YELLOW (YELLOW); KETONES,URINE NEGATIVE (NEGATIVE); LEUKOCYTE ESTERASE ,URINE NEGATIVE (NEGATIVE); NITRITE, URINE NEGATIVE (NEGATIVE); PH,URINE 5.5 (5.0-8.0); PROTEIN,URINE NEGATIVE (NEGATIVE); UGLUCOSE NEGATIVE (NEGATIVE); UROBILINOGEN,URINE 0.2 EU/dL (0.2)
--- NOTE | 2018-02-03 22:30 | NUR ---
SPOKE AGAIN WITH SON, LUIS, ON THE PHONE AND HE SAID HE CAN PHOTOGRAPHY ASSISTANT PATIENT AT AROUND 9AM MEETA MORNING. AT THE MEAN TIME, HE SAID HE IS TRYING TO GET A HOLD ON TO HIS SON AND SEE IF HE CAN PHOTOGRAPHY ASSISTANT PATIENT.
--- NOTE | 2018-02-03 23:23 | NUR ---
provided water to patient. made patient comfortable in bed so she can rest and sleep. vss. nad noted. safety maintained.
--- NOTE | 2018-02-04 04:05 | NUR ---
patient is sleeping at this time. nad noted.
--- NOTE | 2018-02-04 06:30 | NUR ---
PATIENT WENT TO BATHROOM WITH STEADY GAIT. DENIES ANY COMPLAINTS.
--- NOTE | 2018-02-04 07:09 | NUR ---
PATIENT IS SLEEPING COMFORTABLY AT THIS TIME. ENDORSED TO SOLA.
--- NOTE | 2018-02-04 07:10 | NUR ---
Recieved pt at this time. Lying in her bed, apepars to be asleep. Both eyes are closed. NAD. Arousable by verbal and tactile stimulation. VSS will cont to monitor
--- NOTE | 2018-02-04 07:33 | NUR ---
CALLED AND LEFT A MESSAGE TO DIETARY FOR THE PATIENT.
--- NOTE | 2018-02-04 07:57 | NUR ---
Pt eating breakfast at bedside.
--- NOTE | 2018-02-04 09:29 | NUR ---
Called Richard Montes (son) but no answer and left a message.
--- NOTE | 2018-02-04 09:45 | NUR ---
skid worker received a call from ED CRN Jaren informing SW that pt. has been medically cleared for discharge, however the son is not answering their calls. SW contacted pt's son Richard who informed SAYRA he is on his way. He is coming from [facility] and will be at [facility] in about an hour.
--- NOTE | 2018-02-04 09:46 | NUR ---
Lala (social sciences department chair) was able to talk to Richard (pt's son) and she was told that he's at [facility] and will take the first boat
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
--- NOTE | 2018-02-04 12:35 | NUR ---
Patient discharged to home in stable condition. Written and verbal after care instructions given. Patient and Richard (son) verbalizes understanding of instruction. Left in stable condition. Ambulatory in steady gait.
[2018-02-04 12:36] VITALS: BP 106/68
== END 2018-02-04 12:37 | disposition home or self-care (01) ==
LOC: ER 19:51
DX: R53.1 Weakness (principal); I11.0 Hypertensive heart disease with heart failure; I50.9 Heart failure, unspecified; I48.91 Unspecified atrial fibrillation; Z90.89 Acquired absence of other organs; Z95.0 Presence of cardiac pacemaker; Z98.890 Other specified postprocedural states; Z88.0 Allergy status to penicillin; Z88.1 Allergy status to other antibiotic agents; Z88.8 Allergy status to other drugs, medicaments and biological substances; Z60.2 Problems related to living alone; Z79.01 Long term (current) use of anticoagulants
CPT/HCPCS: 36415; 71045-TC; 80048-TC; 80076-TC; 81000-TC; 83690-TC; 84484-TC; 85025-TC; A4606; G0480; J2405; Z7610

== ENCOUNTER 2018-03-18 13:00 | Emergency (ER) | payer MEDICARE, BC ==
[~2018-03-18] VITALS: Ht 160 cm; Wt 64.9 kg
--- NOTE | 2018-03-18 13:05 | NUR ---
BIBRA 89 NEIGHBOR CALLED 911, PATIENT WAS FOUND IN FRONT OF THE YARD ASKING FOR HELP WITH LOW BP 74/66 IN THE FIELD, AL=310. A/OX 3. BREATHING EVEN AND UNLABORED. NO SOB, NAD. IV INTACT AND PATENT ON LEFT HAND, 20G FROM FIELD. SAFETY AND COMFORT MEASURES IN PLACE. AWAITING MD ORDERS.
--- NOTE | 2018-03-18 13:15 | NUR ---
RADIO HOST AT BEDSIDE FOR BLOOD DRAW.
[2018-03-18 13:26] LABS: BASOPHILS % (AUTO) 0.4 % (0.0-2.0); EOSINOPHILS % (AUTO) 2.1 % (0.0-6.0); HEMATOCRIT 38 % (33-45); HEMOGLOBIN 12.7 g/dL (11.5-14.8); LYMPHOCYTES # (AUTO) 2.6 /CMM (0.8-4.8); MEAN CORPUSCULAR HGB CONC 34 g/dl (31.0-36.0); MEAN CORPUSCULAR VOLUME 98 fL (82-100); MONOCYTES # (AUTO) 0.5 /CMM (0.1-1.30); MONOCYTES % (AUTO) 10.3 % (2.0-12.0); NEUTROPHILS # (AUTO) 2.1 /CMM (1.8-8.9); NEUTROPHILS % (AUTO) 39.2 % (43.0-81.0); PLATELET COUNT (AUTO) 170 /CMM (150-450); RDW COEFFICIENT OF VARIATION 13.1 (11.5-15.0); RED BLOOD CELL COUNT(AUTO) 3.88 MIL/uL (4.0-5.2); WHITE BLOOD COUNT (AUTO) 5.3 K/uL (4.3-11.0)
[2018-03-18] MEDS ORDERED: IV NS 0.9% 1,000 ML BAG IV ONE (13:30)
--- NOTE | 2018-03-18 13:34 | NUR ---
SECOND IV STARTED ON LEFT AC, 20G.
[2018-03-18 13:36] LABS: CARBON DIOXIDE 21 mmol/L (21-32); CHLORIDE 112 mmol/L (98-107); CREATININE 0.9 mg/dL (0.6-1.3); GLUCOSE 108 mg/dL (74-106); POTASSIUM 2.9 mmol/L (3.5-5.1); SODIUM SERUM 146 mmol/L (136-145); UREA NITROGEN, BLOOD 10 mg/dL (7-18)
[2018-03-18 13:41] LABS: ALANINE AMINOTRANSFERASE 18 U/L (12-78); ALBUMIN 2.8 g/dL (3.4-5.0); ALKALINE PHOSPHATASE 83 U/L (46-116); ASPARTATE AMINOTRANSFERASE 18 U/L (15-37); BILIRUBIN,DIRECT 0.1 mg/dL (0.0-0.2); BILIRUBIN,TOTAL 0.4 mg/dL (0.2-1.0); TOTAL PROTEIN, SERUM 6.2 g/dL (6.4-8.2)
[2018-03-18 13:42] LABS: ACETAMINOPHEN 1 ug/ml (10-30); ALCOHOL, BLOOD 212 mg/dL (0-0); SALICYLATE 0.8 mg/dL (2.8-20.0)
--- NOTE | 2018-03-18 13:58 | NUR ---
URINE OBTAINED AND SENT TO LAB.
[2018-03-18 14:18] LABS: APPEARANCE,URINE Clear (CLEAR); BILIRUBIN,URINE Negative (NEGATIVE); BLOOD, URINE Negative Ery/uL (NEGATIVE); COLOR,URINE Yellow (YELLOW); KETONES,URINE Negative (NEGATIVE); LEUKOCYTE ESTERASE ,URINE Negative (NEGATIVE); NITRITE, URINE Negative (NEGATIVE); PROTEIN,URINE Negative (NEGATIVE); UGLUCOSE Negative (NEGATIVE); UROBILINOGEN,URINE 0.2 EU/dL (0.2)
[2018-03-18] MEDS ORDERED: POTASSIUM CHLORIDE 20 MEQ TAB.PRT.SR PO ONE ×2 (16:22→16:30)
[2018-03-18 16:53] VITALS: BP 128/86
--- NOTE | 2018-03-18 16:53 | NUR ---
Both IV's removed. Catheter intact and site benign. Pressure and 4x4 applied to site. No bleeding noted. Patient discharged to home in stable condition. Written and verbal after care instructions given. Patient verbalizes understanding of instruction.
== END 2018-03-18 16:53 | disposition home or self-care (01) ==
LOC: ER 13:05
DX: F10.129 Alcohol abuse with intoxication, unspecified (principal); I11.0 Hypertensive heart disease with heart failure; I50.9 Heart failure, unspecified; I48.91 Unspecified atrial fibrillation; E78.00 Pure hypercholesterolemia, unspecified; Z90.89 Acquired absence of other organs; Z95.0 Presence of cardiac pacemaker; Z88.0 Allergy status to penicillin; Z88.1 Allergy status to other antibiotic agents
CPT/HCPCS: 36415; 80048-TC; 80076-TC; 80305; 81000-TC; 85025-TC; A4606; G0480; J7030; Z7610

== ENCOUNTER 2018-04-01 20:21 | Emergency (ER) | payer MEDICARE, BC ==
[~2018-04-01] VITALS: Ht 165.1 cm; Wt 68.0 kg
[2018-04-01 21:35] LABS: BASOPHILS # (AUTO) 0.1 /CMM (0.0-0.2); BASOPHILS % (AUTO) 1.3 % (0.0-2.0); EOSINOPHILS % (AUTO) 1.5 % (0.0-6.0); HEMATOCRIT 39 % (33-45); HEMOGLOBIN 12.6 g/dL (11.5-14.8); LYMPHOCYTES # (AUTO) 1.7 /CMM (0.8-4.8); LYMPHOCYTES % (AUTO) 29.2 % (20.0-44.0); MEAN CORPUSCULAR HGB CONC 33 g/dl (31.0-36.0); MEAN CORPUSCULAR VOLUME 97 fL (82-100); MONOCYTES # (AUTO) 0.4 /CMM (0.1-1.30); MONOCYTES % (AUTO) 7.1 % (2.0-12.0); NEUTROPHILS # (AUTO) 3.5 /CMM (1.8-8.9); NEUTROPHILS % (AUTO) 60.9 % (43.0-81.0); PLATELET COUNT (AUTO) 148 /CMM (150-450); RED BLOOD CELL COUNT(AUTO) 3.97 MIL/uL (4.0-5.2); WHITE BLOOD COUNT (AUTO) 5.8 K/uL (4.3-11.0)
[2018-04-01 21:45] LABS: CALCIUM, SERUM 8.5 mg/dL (8.5-10.1); CARBON DIOXIDE 22 mmol/L (21-32); CHLORIDE 108 mmol/L (98-107); CREATININE 1.1 mg/dL (0.6-1.3); GLUCOSE 96 mg/dL (74-106); POTASSIUM 3.1 mmol/L (3.5-5.1); SODIUM SERUM 142 mmol/L (136-145); UREA NITROGEN, BLOOD 10 mg/dL (7-18)
[2018-04-01 21:51] LABS: ALANINE AMINOTRANSFERASE 20 U/L (12-78); ALBUMIN 3.2 g/dL (3.4-5.0); ALCOHOL, BLOOD 131 mg/dL (0-0); ALKALINE PHOSPHATASE 104 U/L (46-116); ASPARTATE AMINOTRANSFERASE 24 U/L (15-37); BILIRUBIN,DIRECT 0.1 mg/dL (0.0-0.2); BILIRUBIN,TOTAL 0.7 mg/dL (0.2-1.0); TOTAL PROTEIN, SERUM 6.7 g/dL (6.4-8.2)
[2018-04-01 21:56] LABS: ACETAMINOPHEN 0 ug/ml (10-30); SALICYLATE 0.2 mg/dL (2.8-20.0)
[2018-04-01] MEDS ORDERED: POTASSIUM CHLORIDE 20 MEQ TAB.PRT.SR PO ONE ×2 (22:30→22:54)
--- NOTE | 2018-04-01 22:30 | NUR ---
AMBULATE PT TO THE RESTROOM, PT UNABLE TO GIVE URINE SAMPLE AT THIS MOMENT. WILL TRY AGAIN LATER.
--- NOTE | 2018-04-01 23:25 | NUR ---
REQUESTED ARMINDA FOR PT TO TAKE HER BACK TO [place], ETA WITHIN THE HOUR.
[2018-04-01 23:33] VITALS: BP 118/75
--- NOTE | 2018-04-01 23:35 | NUR ---
REPORT GIVEN TO MAVERICK SUNSHINE
== END 2018-04-02 00:10 | disposition home or self-care (01) ==
LOC: ER 20:23
DX: S90.412A Abrasion, left great toe, initial encounter (principal); S90.411A Abrasion, right great toe, initial encounter; I11.0 Hypertensive heart disease with heart failure; I50.9 Heart failure, unspecified; I48.91 Unspecified atrial fibrillation; F10.10 Alcohol abuse, uncomplicated; Z90.89 Acquired absence of other organs; Z88.0 Allergy status to penicillin; Z88.1 Allergy status to other antibiotic agents; Z88.8 Allergy status to other drugs, medicaments and biological substances; Z60.2 Problems related to living alone; Z87.440 Personal history of urinary (tract) infections; X58.XXXA Exposure to other specified factors, initial encounter; Y93.89 Activity, other specified; Y92.89 Other specified places as the place of occurrence of the external cause; Y99.8 Other external cause status
CPT/HCPCS: 36415; 73630-TC; 80048-TC; 80076-TC; 85025-TC; A4606; G0480; Z7610

== ENCOUNTER 2018-04-02 01:39 | Emergency (ER) | payer MEDICARE, OTHER ==
[~2018-04-02] VITALS: Ht 167.6 cm; Wt 63.5 kg
[2018-04-02 01:40] VITALS: BP 128/75
--- NOTE | 2018-04-02 07:16 | NUR ---
ANITHA (FRIEND) WILL BE PICKING HER UP AT 0800. PHONE NUMBER: [phone]
== END 2018-04-02 07:45 | disposition home or self-care (01) ==
LOC: ER 01:42
DX: Z53.21 Procedure and treatment not carried out due to patient leaving prior to being seen by health care provider (principal); E78.00 Pure hypercholesterolemia, unspecified; Z95.0 Presence of cardiac pacemaker; Z90.89 Acquired absence of other organs; Z98.890 Other specified postprocedural states; Z87.440 Personal history of urinary (tract) infections
CPT/HCPCS: A4606; Z7610

== ENCOUNTER 2018-04-19 18:54 | Emergency (ER) | payer MEDICARE, BC ==
[~2018-04-19] VITALS: Ht 160 cm; Wt 66.7 kg
--- NOTE | 2018-04-19 18:55 | NUR ---
JENNIFER 89 FROM HOME FOR ETOH INTOXICATION. A/OX 2. BREATHING EVEN AND UNLABORED. NO SOB, NAD, VITALS STABLE. SAFETY AND COMFORT MEASURES IN PLACE. AWAITING MD ORDERS.
--- NOTE | 2018-04-19 19:20 | NUR ---
REPORT GIVEN TO ED FOR LETI.
--- NOTE | 2018-04-19 19:23 | NUR ---
ASSUMED CARE. RECEIVED REPORT FROM AM SHIFT MAVERICK GREEN. PT AAOX4 NO ACUTE DISTRESS NOTED, RESP EVEN AND UNLABORED. PT ON CARDIAC MONITORING, CONTINUOUS POX, O2@2L/NC. PT WAS SEEN AND EVALUATED BY ER MD WITH ORDERS RECEIVED. WILL CARRY OUT ORDERS.
[2018-04-19] MEDS ORDERED: IV NS 0.9% 1,000 ML BAG IV ONE (19:30)
[2018-04-19] MEDS ORDERED: ONDANSETRON HCL/PF 4 MG/2 ML VIAL ONE (19:30)
[2018-04-19] MEDS ORDERED: ONDANSETRON HCL/PF 4 MG/2 ML VIAL IVP ONE (19:30)
[2018-04-19 19:41] LABS: BASOPHILS # (AUTO) 0.1 /CMM (0.0-0.2); BASOPHILS % (AUTO) 2.1 % (0.0-2.0); EOSINOPHILS % (AUTO) 2.1 % (0.0-6.0); HEMATOCRIT 40 % (33-45); HEMOGLOBIN 13.1 g/dL (11.5-14.8); LYMPHOCYTES # (AUTO) 1.9 /CMM (0.8-4.8); LYMPHOCYTES % (AUTO) 33.1 % (20.0-44.0); MEAN CORPUSCULAR HGB CONC 33 g/dl (31.0-36.0); MEAN CORPUSCULAR VOLUME 96 fL (82-100); MONOCYTES # (AUTO) 0.5 /CMM (0.1-1.30); MONOCYTES % (AUTO) 7.8 % (2.0-12.0); NEUTROPHILS # (AUTO) 3.2 /CMM (1.8-8.9); NEUTROPHILS % (AUTO) 54.9 % (43.0-81.0); PLATELET COUNT (AUTO) 177 /CMM (150-450); RDW COEFFICIENT OF VARIATION 13.4 (11.5-15.0); RED BLOOD CELL COUNT(AUTO) 4.12 MIL/uL (4.0-5.2); WHITE BLOOD COUNT (AUTO) 5.8 K/uL (4.3-11.0)
[2018-04-19 19:50] LABS: CALCIUM, SERUM 8.8 mg/dL (8.5-10.1); CARBON DIOXIDE 22 mmol/L (21-32); CHLORIDE 107 mmol/L (98-107); CREATININE 1.1 mg/dL (0.6-1.3); GLUCOSE 76 mg/dL (74-106); POTASSIUM 3.2 mmol/L (3.5-5.1); SODIUM SERUM 141 mmol/L (136-145); UREA NITROGEN, BLOOD 11 mg/dL (7-18)
[2018-04-19 19:56] LABS: ALANINE AMINOTRANSFERASE 22 U/L (12-78); ALBUMIN 3.1 g/dL (3.4-5.0); ALKALINE PHOSPHATASE 115 U/L (46-116); ASPARTATE AMINOTRANSFERASE 31 U/L (15-37); BILIRUBIN,DIRECT 0.2 mg/dL (0.0-0.2); BILIRUBIN,TOTAL 0.9 mg/dL (0.2-1.0); LIPASE 199 U/L (73-393); TOTAL PROTEIN, SERUM 6.7 g/dL (6.4-8.2)
[2018-04-19 19:58] LABS: TROPONIN I < 0.017 ng/mL (0.00-0.056)
--- NOTE | 2018-04-19 20:39 | NUR ---
PT AMBULATORY TO THE BATHROOM WITH STEADY GAIT NOTED. PT AAOX4 NO ACUTE DISTRESS NOTED, RESP EVEN AND UNLABOREWD. PT CLEARED FOR DISCHARGE PER ER MD.
[2018-04-19 20:46] LABS: APPEARANCE,URINE Slightly Cloudy (CLEAR); BILIRUBIN,URINE Negative (NEGATIVE); BLOOD, URINE Negative Ery/uL (NEGATIVE); COLOR,URINE Yellow (YELLOW); KETONES,URINE Negative (NEGATIVE); LEUKOCYTE ESTERASE ,URINE Small (NEGATIVE); NITRITE, URINE Negative (NEGATIVE); PH,URINE 6.5 (5.0-8.0); PROTEIN,URINE Negative (NEGATIVE); UGLUCOSE Negative (NEGATIVE); UROBILINOGEN,URINE 0.2 EU/dL (0.2)
--- NOTE | 2018-04-19 20:56 | NUR ---
CALLED ARMINDA TO ARRANGE S TRANSPORT TO [facility]. WAS GIVEN A ETA. TRIP #:[id number]
[2018-04-19 21:17] LABS: BACTERIA,URINE Many /HPF (None Seen); RBC,URINE 0-2 /HPF (0-2); SQUAMOUS EPITHELIAL CELL,UR Moderate /HPF (None Seen)
[2018-04-19 21:21] VITALS: BP 111/63
--- NOTE | 2018-04-19 21:21 | NUR ---
IV removed. Catheter intact and site benign. Pressure and 4x4 applied to site. No bleeding noted. ambulatory with a steady gait. BLS TRANSPORT AT BEDSIDE REPORT GIVEN TGO EMT YOMAIRA.
== END 2018-04-19 21:22 | disposition home or self-care (01) ==
LOC: ER 18:55
DX: F10.129 Alcohol abuse with intoxication, unspecified (principal); I11.0 Hypertensive heart disease with heart failure; I50.9 Heart failure, unspecified; I48.91 Unspecified atrial fibrillation; E78.00 Pure hypercholesterolemia, unspecified; R82.99 Other abnormal findings in urine; Z95.0 Presence of cardiac pacemaker; Z90.89 Acquired absence of other organs; Z88.0 Allergy status to penicillin; Z88.1 Allergy status to other antibiotic agents; Z88.8 Allergy status to other drugs, medicaments and biological substances; Z98.890 Other specified postprocedural states; Z60.2 Problems related to living alone; Z87.440 Personal history of urinary (tract) infections
CPT/HCPCS: 36415; 71045-TC; 80048-TC; 80076-TC; 81000-TC; 83690-TC; 84484-TC; 85025-TC; 87086-TC; A4606; G0480; J2405; J7030; Z7610

== ENCOUNTER 2018-11-30 10:36 | Inpatient (IN) | payer BC, MEDICARE ==
[~2018-11-30] VITALS: Ht 165.1 cm; Wt 64.4 kg
[2018-11-30] VITALS (10 sets, daily range): BP systolic 87–117; BP diastolic 34–65
[~2018-11-30 10:36] MED LIST changes: -LOSA100T15 PO; +LOSA100T31 PO
--- NOTE | 2018-11-30 10:45 | NUR ---
nemo APA #[id number] from [facility] sent here for abdominal pain and vaginal pain x 1 day - h/o Afib on Xarelto. patient is alert and oriented x 3, verbally responsive, breathing evenly and unlabored. connected to the monitor, and pulse ox, noted heart rate of 145, MD made aware. kept comfortable, will continue to monitor accordingly.
[2018-11-30 10:56] LABS: BASOPHILS % (AUTO) 0.2 % (0.0-2.0); EOSINOPHILS % (AUTO) 0.2 % (0.0-6.0); HEMATOCRIT 40 % (33-45); HEMOGLOBIN 12.9 g/dL (11.5-14.8); LYMPHOCYTES # (AUTO) 0.9 /CMM (0.8-4.8); LYMPHOCYTES % (AUTO) 5.4 % (20.0-44.0); MEAN CORPUSCULAR HGB CONC 33 g/dl (31.0-36.0); MEAN CORPUSCULAR VOLUME 93 fL (82-100); MONOCYTES # (AUTO) 0.9 /CMM (0.1-1.30); NEUTROPHILS # (AUTO) 15.5 /CMM (1.8-8.9); NEUTROPHILS % (AUTO) 89.2 % (43.0-81.0); PLATELET COUNT (AUTO) 171 /CMM (150-450); RED BLOOD CELL COUNT(AUTO) 4.23 MIL/uL (4.0-5.2); WHITE BLOOD COUNT (AUTO) 17.3 K/uL (4.3-11.0)
[2018-11-30] MEDS ORDERED: DILTIAZEM HCL 25 MG IV ONE ×2 (10:56→12:19)
[2018-11-30] MEDS ORDERED: DILTIAZEM HCL 25 MG IV IV ONE (11:00)
[2018-11-30] MEDS ORDERED: RIVA3CAP5 PO (11:02)
[2018-11-30] MEDS ORDERED: RISP0.5T5 PO (11:02)
[2018-11-30] MEDS ORDERED: RIVA10TA PO (11:02)
[2018-11-30] MEDS ORDERED: ASPI-1152 PO (11:02)
[2018-11-30] MEDS ORDERED: DOCU-141 PO (11:02)
[2018-11-30] MEDS ORDERED: PANT40TA2 PO (11:02)
[2018-11-30] MEDS ORDERED: DILT180C95 PO (11:02)
[2018-11-30] MEDS ORDERED: RISP0.253 PO (11:02)
[2018-11-30 11:06] LABS: CALCIUM, SERUM 8.8 mg/dL (8.5-10.1); CARBON DIOXIDE 27 mmol/L (21-32); CHLORIDE 103 mmol/L (98-107); CREATININE 1.4 mg/dL (0.6-1.3); GLUCOSE 129 mg/dL (74-106); POTASSIUM 3.7 mmol/L (3.5-5.1); SODIUM SERUM 137 mmol/L (136-145); UREA NITROGEN, BLOOD 21 mg/dL (7-18)
[2018-11-30 11:18] LABS: ALANINE AMINOTRANSFERASE 10 U/L (12-78); ALKALINE PHOSPHATASE 101 U/L (46-116); ASPARTATE AMINOTRANSFERASE 13 U/L (15-37); B-TYPE NATRIURETIC PEPTIDE 3139 PG/ML (0-125); BILIRUBIN,DIRECT 0.6 mg/dL (0.0-0.2); BILIRUBIN,TOTAL 1.6 mg/dL (0.2-1.0)
--- NOTE | 2018-11-30 11:49 | NUR ---
patient wheeld via gurney going to ct scan.
--- NOTE | 2018-11-30 12:04 | NUR ---
patient came back from ct scan.
--- NOTE | 2018-11-30 12:23 | NUR ---
dr. vasques at bedside and ordered cardizem 10mg=2ml ivp. orders carried out and noted.
--- NOTE | 2018-11-30 13:16 | NUR ---
SHERRI POWELL FOR PANEL - SALES PROJECT MANAGER EVITA TOBAR Addendum: 11/30/18 at 1338 by TYRESE ON-CALL IS SID PAGE
--- NOTE | 2018-11-30 13:56 | NUR ---
ICU BED 258
[2018-11-30] MEDS ORDERED: DILTIAZEM HCL IV 125 MG in IV NS 0.9% 100 ML IV PRN (14:00)
[2018-11-30 14:08] LABS: APPEARANCE,URINE Clear (CLEAR); BILIRUBIN,URINE SMALL (NEGATIVE); BLOOD, URINE Negative Ery/uL (NEGATIVE); COLOR,URINE Yellow (YELLOW); KETONES,URINE Negative (NEGATIVE); LEUKOCYTE ESTERASE ,URINE Negative (NEGATIVE); NITRITE, URINE Negative (NEGATIVE); PROTEIN,URINE 30 mg/dl (NEGATIVE); UGLUCOSE Negative (NEGATIVE)
--- NOTE | 2018-11-30 14:29 | NUR ---
called ICU and report given to Rowena TEMPLE for susan.
[2018-11-30] MEDS ORDERED: ZOLPIDEM TARTRATE 5 MG TABLET PO PRN (15:00)
[2018-11-30] MEDS ORDERED: DEXTROSE 50%-WATER 50 ML DISP.SYRIN IV PRN (15:00)
--- NOTE | 2018-11-30 15:13 | NUR ---
transferred patient to ICU via acls protocol accompanied by rn and emt, in no apparent distress noted.
--- NOTE | 2018-11-30 15:20 | NUR ---
RN INITIAL NOTES RECEIVED PT FROM ER. A/OX3. ON 02 AT 2LPM VIA NC. NO SOB NOTED. DENIES ANY PAIN. CONNECTED TO MONITOR. PT ON A.FIB UNCONTROLLED, 100-130S. IV LINES IN PLACE. BODY ASSESSMENT DONE. SKIN INTACT. PT COMFORTABLE IN THE ROOM. ORIENTED TO ROOM AND USE OF CALL LIGHT. DMRITI, GOSPEL WORKER AWARE OF ADMISSION. AWAITING FOR ORDERS. WILL CLOSELY MONITOR.
[2018-11-30] MEDS ORDERED: DILTIAZEM HCL IV 125 MG in IV D5W 100 ML IV PRN (15:30)
[2018-11-30] MEDS: IV D5/0.45 NACL 1,000 ML IV PRN ×2 (15:39→23:26)
[2018-11-30] MEDS: ONDANSETRON HCL/PF 4 MG/2 ML VIAL IVP PRN (15:57)
[2018-11-30] MEDS ORDERED: PHENYLEPHRINE 80 MG in IV D5W 250 ML IV PRN (16:30)
[2018-11-30] MEDS: RIVAROXABAN 15 MG TABLET PO SCH (17:43)
[2018-11-30] MEDS: risperiDONE 0.25 MG TABLET PO SCH (17:43)
[2018-11-30] MEDS: RIVASTIGMINE TARTRATE 1.5 MG CAPSULE PO SCH (17:43)
[2018-11-30] MEDS: BLOOD SUGAR DIAGNOSTIC 1 EACH STRIP IN SCH ×2 (18:01→23:47)
--- NOTE | 2018-11-30 18:05 | NUR ---
RN NOTES ZOYA TEMPLE (CHARGE NURSE) CALLED PARVIZ HARRIS REGARDING HR, UNCONTROLLED A.FIB 100-130S AND BP ON LOW SIDE. BUS AND TROLLEY DISPATCHER ORDERED MIKE NEEDED. PARVIZ HARRIS ALSO STATED NOT TO START CARDIZEM DUE TO LOW BP. PT ON XARELTO. WILL CLOSELY MONITOR
[2018-11-30] MEDS ORDERED: MEROPENEM 500 MG in IV NS 0.9% 50 ML IV ONE (18:30)
--- NOTE | 2018-11-30 18:32 | NUR ---
RN CLOSING NOTES NO SIGNIFICANT CHANGE NOTED. PT REMAINS A/OX4. HR ON 100S. DENIES ANY PAIN. FC INSERTED. NO HEMATURIA NOTED. KEPT CLEAN AND DRY. REPOSITIONED Q2. CALL LIGHT WITHIN REACH. WILL ENDORSE FOR CONTINUITY OF CARE.
--- NOTE | 2018-11-30 19:45 | NUR ---
ICU/RN RECEIVED PT AWAKE ALERT OX3.DENIES PAIN OR DISCOMFORT.OFFERS NO COMPLAINTS ALTHOUGH PT VERY NEEDY,CALLS Q10 MINUTES.STAYED W/ PT.TO REASSURE ABOUT CONDITION.MONITOR SHOWS A-FIB RATE OF 121.
[2018-11-30] MEDS: METRONIDAZOLE 500MG/ NS 100ML 500 MG in PREMIX 1 EA IV SCH (21:04)
[2018-11-30] MEDS: DOCUSATE SODIUM 100 MG CAPSULE PO SCH (21:31)
--- NOTE | 2018-11-30 22:45 | NUR ---
ICU/RN SLEEPING BUT AROUSES EASILY C/O PAIN BUT NOT ABLE TO STATE WHERE THE PAIN IS.REPOSITIONED.BACK TO SLEEP IN 10 MINUTES
[2018-11-30] MEDS: INSULIN REGULAR, HUMAN 100 UNIT/ML 3 ML VIAL SQ PRN (23:47)
[2018-12-01] VITALS (30 sets, daily range): BP systolic 69–127; BP diastolic 36–74
--- NOTE | 2018-12-01 02:25 | NUR ---
ICU/RN C/O OF NAUSEA W/OUT EMESIS,GIVEN ZOFRAN IVP.WILL RE=EVALUATE.
[2018-12-01] MEDS: ONDANSETRON HCL/PF 4 MG/2 ML VIAL IVP PRN (02:27)
[2018-12-01] MEDS: METRONIDAZOLE 500MG/ NS 100ML 500 MG in PREMIX 1 EA IV SCH ×3 (04:38→21:00)
[2018-12-01 04:43] LABS: EOSINOPHILS % (AUTO) 0.3 % (0.0-6.0); HEMATOCRIT 37 % (33-45); HEMOGLOBIN 11.9 g/dL (11.5-14.8); LYMPHOCYTES # (AUTO) 0.6 /CMM (0.8-4.8); LYMPHOCYTES % (AUTO) 6.2 % (20.0-44.0); MEAN CORPUSCULAR HGB CONC 33 g/dl (31.0-36.0); MEAN CORPUSCULAR VOLUME 92 fL (82-100); MONOCYTES # (AUTO) 0.6 /CMM (0.1-1.30); MONOCYTES % (AUTO) 6.1 % (2.0-12.0); NEUTROPHILS % (AUTO) 87.4 % (43.0-81.0); PLATELET COUNT (AUTO) 165 /CMM (150-450); RED BLOOD CELL COUNT(AUTO) 3.98 MIL/uL (4.0-5.2); WHITE BLOOD COUNT (AUTO) 10.3 K/uL (4.3-11.0)
[2018-12-01 05:02] LABS: ALANINE AMINOTRANSFERASE 11 U/L (12-78); ALBUMIN 2.3 g/dL (3.4-5.0); ALKALINE PHOSPHATASE 88 U/L (46-116); ASPARTATE AMINOTRANSFERASE 15 U/L (15-37); B-TYPE NATRIURETIC PEPTIDE 2012 PG/ML (0-125); BILIRUBIN,TOTAL 1.1 mg/dL (0.2-1.0); CALCIUM, SERUM 8.2 mg/dL (8.5-10.1); CARBON DIOXIDE 25 mmol/L (21-32); CHLORIDE 102 mmol/L (98-107); GLUCOSE 136 mg/dL (74-106); MAGNESIUM 1.5 mg/dL (1.8-2.4); PHOSPHORUS 3.7 mg/dL (2.5-4.9); POTASSIUM 3.1 mmol/L (3.5-5.1); SODIUM SERUM 138 mmol/L (136-145); UREA NITROGEN, BLOOD 30 mg/dL (7-18)
[2018-12-01 05:05] LABS: THYROID STIMULATING HORMONE 2.824 uIU/mL (0.358-3.74)
[2018-12-01] MEDS: BLOOD SUGAR DIAGNOSTIC 1 EACH STRIP IN SCH ×3 (05:30→17:11)
[2018-12-01] MEDS: MEROPENEM 500 MG in IV NS 0.9% 100 ML IV SCH ×2 (05:37→17:10)
--- NOTE | 2018-12-01 07:22 | NUR ---
ICU/RN REPORT AND CARE OF PT GIVEN TO AFSATU RN
--- NOTE | 2018-12-01 07:26 | NUR ---
STONE OPERATOR OPENING NOTES RECEIVED PT FROM NIGHTSHIFT RN IN STABLE CONDITION .PT IS A/O X2-3 WITH PERIODS OF CONFUSION AND FORGETFULNESS. NO SOB OR ACUTE SIGNS OF DISTRESS NOTED. BREATHING IS EVEN AND UNLABORED. PT ON 2 L VIA NC AND SATING WELL. VSS AT THIS TIME. PT AFIB ON THE TELE MONITOR WITH A HR OF 108. INVASIVE LINES NOTED TO BE PATENT AND INTACT. NO REDNESS OR SIGNS OF INFILTRATION NOTED. GUTIÉRREZ CATHETER NOTED TO BE PATENT AND DRAINING CLEAR, YELLOW URINE. BED IN LOW LOCKED POSITION, SIDE RAILS UP X3, CALL LIGHT WITHIN REACH, BED ALARM ON. WILL CONTINUE TO MONITOR
[2018-12-01] MEDS: POTASSIUM CL. PREMIX PERIPHER. 50 ML IV SCH ×2 (08:24→09:38)
[2018-12-01] MEDS: PANTOPRAZOLE 40 MG VIAL IV SCH (08:24)
[2018-12-01] MEDS: Magnesium 1GM/D5W 100ML PREMIX 100 ML IV SCH ×2 (08:24→09:37)
[2018-12-01] MEDS: RIVASTIGMINE TARTRATE 1.5 MG CAPSULE PO SCH ×2 (08:25→17:10)
[2018-12-01] MEDS: IV D5/0.45 NACL 1,000 ML IV PRN (08:26)
[2018-12-01] MEDS ORDERED: ASPIRIN EC 81 MG TABLET.DR PO SCH (09:00)
[2018-12-01] MEDS ORDERED: ATORVASTATIN 40 MG TABLET PO SCH (09:00)
[2018-12-01] MEDS ORDERED: LOSARTAN POTASSIUM 50 MG TABLET PO SCH (09:00)
[2018-12-01] MEDS: POTASSIUM CHLORIDE 20 MEQ TAB.PRT.SR PO SCH ×2 (09:37→10:26)
[2018-12-01] MEDS: IV NS 0.9% 1,000 ML IV PRN (10:26)
[2018-12-01] MEDS: risperiDONE 0.25 MG TABLET PO SCH (17:10)
[2018-12-01] MEDS: RIVAROXABAN 15 MG TABLET PO SCH (17:11)
--- NOTE | 2018-12-01 18:21 | NUR ---
NUTRITION FACULTY MEMBER NOTES: FNS ORDER MD HARRIS UPDATED OBN DR. LISA'S DIET RECOMMENDATIONS. ALSO MADE AWARE THAT PT HAS YET TO BE SEE BY DR. ANNALEE CORLEY. PER "WE CAN START HER ON THE RECOMMENDED DIET AND SEE HOW SHE DOES. SHE WILL MOST LIKELY NOT NEED ANY PROCEDURES"
--- NOTE | 2018-12-01 19:19 | NUR ---
RESOURCE MANAGEMENT PLANNER CLOSING NOTES PT REMAINS STABLE. ALL NEEDS MET DURING SHIFT AND ORDER CARRIED OUT ACCORDINGLY. ALL DUE MEDS GIVEN. PRN RENDERED. SHE WAS REPOSITIONED AND TURNED PER HOSPITAL PROTOCOL. INVASIVE LINES REMAINS PATENT AND INTACT. GUTIÉRREZ CATHETER REMAINS PATENT AND INTACT. SAFETY PRECAUTIONS REMAIN IN PLACE. WILL ENDORSE TO NIGHTSHIFT RN FOR LETI.
--- NOTE | 2018-12-01 19:51 | NUR ---
DELIVERY ROOM CLERK RCD PT A/O x2; AFIB ON THE MONITOR. DIMINISHED LUNG SOUNDS THROUGHOUT ON O2 2L NC. PT DENIES PAIN AT THIS TIME. REMOVED LAC IV IT IS BLEEDING. ADVISED PT SHE WOULD NEED A SECOND IV. SHE ASKED FOR IT TO BE DONE LATER. GUTIÉRREZ CATH INTACT DRAINING CLEAR YELLOW URINE. CONTINUE TO MONITOR.
[2018-12-01] MEDS: DOCUSATE SODIUM 100 MG CAPSULE PO SCH (22:00)
[2018-12-02] VITALS (27 sets, daily range): BP systolic 85–145; BP diastolic 41–74
[2018-12-02] MEDS: IV NS 0.9% 1,000 ML IV PRN ×3 (00:30→17:58)
[2018-12-02] MEDS: BLOOD SUGAR DIAGNOSTIC 1 EACH STRIP IN SCH ×4 (00:30→17:16)
[2018-12-02 04:40] LABS: BASOPHILS % (AUTO) 0.3 % (0.0-2.0); EOSINOPHILS % (AUTO) 0.7 % (0.0-6.0); HEMATOCRIT 35 % (33-45); HEMOGLOBIN 11.3 g/dL (11.5-14.8); LYMPHOCYTES # (AUTO) 0.7 /CMM (0.8-4.8); LYMPHOCYTES % (AUTO) 6.5 % (20.0-44.0); MEAN CORPUSCULAR HGB CONC 32 g/dl (31.0-36.0); MEAN CORPUSCULAR VOLUME 92 fL (82-100); MONOCYTES # (AUTO) 0.8 /CMM (0.1-1.30); MONOCYTES % (AUTO) 7.7 % (2.0-12.0); NEUTROPHILS # (AUTO) 8.7 /CMM (1.8-8.9); NEUTROPHILS % (AUTO) 84.8 % (43.0-81.0); PLATELET COUNT (AUTO) 168 /CMM (150-450); RED BLOOD CELL COUNT(AUTO) 3.79 MIL/uL (4.0-5.2); WHITE BLOOD COUNT (AUTO) 10.3 K/uL (4.3-11.0)
[2018-12-02 04:52] LABS: CALCIUM, SERUM 7.6 mg/dL (8.5-10.1); CARBON DIOXIDE 22 mmol/L (21-32); CHLORIDE 112 mmol/L (98-107); CREATININE 1.6 mg/dL (0.6-1.3); GLUCOSE 104 mg/dL (74-106); MAGNESIUM 2.1 mg/dL (1.8-2.4); POTASSIUM 3.6 mmol/L (3.5-5.1); SODIUM SERUM 143 mmol/L (136-145); UREA NITROGEN, BLOOD 30 mg/dL (7-18)
[2018-12-02] MEDS: METRONIDAZOLE 500MG/ NS 100ML 500 MG in PREMIX 1 EA IV SCH ×2 (05:00→20:58)
--- NOTE | 2018-12-02 05:54 | NUR ---
RT NOTE EKG RESULTS RELAYED TO RN.
[2018-12-02] MEDS: MEROPENEM 500 MG in IV NS 0.9% 100 ML IV SCH ×2 (06:01→17:18)
--- NOTE | 2018-12-02 06:58 | NUR ---
RADIOPHARMACIST PT C/O GENERALIZED PAIN BUT DECLINED PAIN MEDICATION. PT ALSO NOTED WITH EPISODES OF CONFUSION BUT EASILY REORIENTED TO SITUATION.
[2018-12-02] MEDS: PANTOPRAZOLE 40 MG VIAL IV SCH (08:08)
--- NOTE | 2018-12-02 08:30 | NUR ---
ICU/RN: PARVIZ Moy at bedside; updated on pt status, clarified diet order. Place on full liquid diet per COGNOS; COGNOS to f/u with surgery regarding pt case.
--- NOTE | 2018-12-02 09:45 | NUR ---
ICU/RN: Dr Yeh at bedside; updated on pt status. New orders for digoxin and electrolyte replacements noted and carried out.
[2018-12-02] MEDS: RIVASTIGMINE TARTRATE 1.5 MG CAPSULE PO SCH ×2 (10:23→17:04)
[2018-12-02] MEDS: POTASSIUM CL. PREMIX PERIPHER. 50 ML IV SCH ×4 (11:24→16:59)
[2018-12-02] MEDS: DIGOXIN INJ 0.5 MG/2 ML AMPUL IV SCH ×2 (11:24→17:04)
--- NOTE | 2018-12-02 12:00 | NUR ---
ICU/RN: Pt OOB, sitting in chair for lunch. Tolerated well. Assisted to commode, no BM noted.
[2018-12-02] MEDS ORDERED: METRONIDAZOLE 500 MG TABLET PO SCH (13:00)
--- NOTE | 2018-12-02 13:40 | NUR ---
ICU/RN: Dr Mcintyre rounds; informed of imaging results, pt passing gas, no BM, tolerating bland liquid diet with poor appetite. Per MD, "No need for surgery, the cause is viral. Advance diet as tolerated, she's clear from a GI perspective." Noted. Pt updated.
--- NOTE | 2018-12-02 16:10 | NUR ---
ICU/RN: Ama CIGAR PACKER AND GRADER at bedside; updated on pt status. Informed of Dr Mcintyre's plan, cleared per GI. Orders small bowel follow through with gastrograffin to r/o SBO, keep NPO until ruled out. Noted and carried out. Pt in agreement with plan.
[2018-12-02] MEDS: risperiDONE 0.25 MG TABLET PO SCH (17:04)
[2018-12-02] MEDS: RIVAROXABAN 15 MG TABLET PO SCH (17:07)
--- NOTE | 2018-12-02 17:34 | NUR ---
OTOLARYNGOLOGY TEACHER NOTES RECEIVED REPORT FROM MICHAEL TEMPLE FROM ICU. PATIENT TO BR TRANSFERRED TO 105
--- NOTE | 2018-12-02 17:52 | NUR ---
ICU/RN: Pt received at bedside by primary RN. Transferred in stable condition, no distress. Belongings, chart and meds transferred with pt. Endorsed to f/u micro sample (sputum) to RN from ID.
--- NOTE | 2018-12-02 17:52 | NUR ---
YARD LOADER OPERATOR ADMIT NOTES RECEIVED PATIENT FROM ICU VIA [facility] PROTOCOL. ALERT AND ORIENTED X4 WITH SOME CONFUSION. NO SIGNS OR SYMPTOMS OF RESPIRATORY DISTRESS ON 2 LTRS NASAL CANNULA OR ACUTE PAIN NOTED. SKIN INTACT IV # 20 GAUGE IN RAC WITH MERREM RUNNING AND NS @ 125 ML/HR.. VITAL SIGNS FOLLOWS BP 117/67 HR 104 RR 18 TEMP 97.3 O2 97%. SAFETY PRECAUTIONS IN PLACE BED IN LOW POSITION CALL LIGHT WITHIN REACH. WILL CONT TO MONITOR
--- NOTE | 2018-12-02 18:53 | NUR ---
FEDERAL MEDIATION COMMISSIONER NOTES PATIENT HAS (L) WALL PACEMAKER ON DEMAND
--- NOTE | 2018-12-02 19:17 | NUR ---
HELPDESK SPECIALIST NOTES REPORT GIVEN TO NOC NO SIGNIFICANT CHANGES SINCE ADMIT. LETI
--- NOTE | 2018-12-02 19:40 | NUR ---
DROP WORKER NOTES, RECEIVED PATIENT IN BED AWAKE, ALERT AND ORIENTED X4, BREATHING EVEN AND UNLABORED NO S/S OF RESPIRATORY DISTRESS/SOB, OR PAIN NOTED OR REPORTED AT THIS TIME, RAC IV ACCESS PATENT AND INTACT, IVF INFUSING WELL AND PATIENT TOLERATED WELL, NO S/S OF INFILTRATION OR ABNORMALITY NOTED, SAFETY PRECAUTIONS IN PLACE BED, BED LOCKED AND IN LOW POSITION CALL LIGHT WITHIN REACH. WILL CONT TO MONITOR CLOSELY.
[2018-12-02] MEDS: DOCUSATE SODIUM 100 MG CAPSULE PO SCH (21:12)
[2018-12-03] VITALS: BP 133/63
[2018-12-03] MEDS: BLOOD SUGAR DIAGNOSTIC 1 EACH STRIP IN SCH ×4 (00:12→17:42)
[2018-12-03] MEDS: DIGOXIN INJ 0.5 MG/2 ML AMPUL IV SCH ×2 (00:14→13:26)
[2018-12-03 04:00] VITALS: BP 105/50
[2018-12-03] MEDS: METRONIDAZOLE 500MG/ NS 100ML 500 MG in PREMIX 1 EA IV SCH ×3 (05:16→21:14)
[2018-12-03] MEDS: IV NS 0.9% 1,000 ML IV PRN ×2 (06:14→21:14)
[2018-12-03 06:32] LABS: BASOPHILS % (AUTO) 0.1 % (0.0-2.0); EOSINOPHILS % (AUTO) 1.3 % (0.0-6.0); HEMATOCRIT 34 % (33-45); HEMOGLOBIN 11.1 g/dL (11.5-14.8); LYMPHOCYTES # (AUTO) 0.7 /CMM (0.8-4.8); LYMPHOCYTES % (AUTO) 6.6 % (20.0-44.0); MEAN CORPUSCULAR HGB CONC 33 g/dl (31.0-36.0); MEAN CORPUSCULAR VOLUME 93 fL (82-100); MONOCYTES # (AUTO) 0.8 /CMM (0.1-1.30); MONOCYTES % (AUTO) 8.2 % (2.0-12.0); NEUTROPHILS # (AUTO) 8.7 /CMM (1.8-8.9); NEUTROPHILS % (AUTO) 83.8 % (43.0-81.0); PLATELET COUNT (AUTO) 187 /CMM (150-450); RED BLOOD CELL COUNT(AUTO) 3.68 MIL/uL (4.0-5.2); WHITE BLOOD COUNT (AUTO) 10.3 K/uL (4.3-11.0)
[2018-12-03 06:45] LABS: ALANINE AMINOTRANSFERASE 9 U/L (12-78); ALBUMIN 1.8 g/dL (3.4-5.0); ALKALINE PHOSPHATASE 76 U/L (46-116); ASPARTATE AMINOTRANSFERASE 13 U/L (15-37); BILIRUBIN,TOTAL 0.4 mg/dL (0.2-1.0); CALCIUM, SERUM 7.8 mg/dL (8.5-10.1); CARBON DIOXIDE 21 mmol/L (21-32); CHLORIDE 113 mmol/L (98-107); CREATININE 1.1 mg/dL (0.6-1.3); GLUCOSE 92 mg/dL (74-106); MAGNESIUM 1.7 mg/dL (1.8-2.4); PHOSPHORUS 2.2 mg/dL (2.5-4.9); POTASSIUM 3.7 mmol/L (3.5-5.1); SODIUM SERUM 143 mmol/L (136-145); TOTAL PROTEIN, SERUM 5.1 g/dL (6.4-8.2); UREA NITROGEN, BLOOD 21 mg/dL (7-18)
--- NOTE | 2018-12-03 06:48 | NUR ---
CLARITY SPECIALISTS ENDING NOTES, PATIENT IN BED AWAKE, ALERT AND ORIENTED X4, WITH INTERMITTENT CONFUSION AT TIMES, BREATHING EVEN AND UNLABORED NO S/S OF RESPIRATORY DISTRESS/SOB, OR PAIN NOTED OR REPORTED AT THIS TIME, RAC IV ACCESS PATENT AND INTACT, IVF INFUSING WELL AND PATIENT TOLERATED WELL, NO S/S OF INFILTRATION OR ABNORMALITY NOTED, SAFETY PRECAUTIONS IN PLACE BED, BED LOCKED AND IN LOW POSITION CALL LIGHT WITHIN REACH. NO CHANGE IN CONDITION THROUGHOUT THE NIGHT, REMAINS NPO TO REST BOWEL, WILL CONT TO MONITOR CLOSELY.
--- NOTE | 2018-12-03 07:00 | NUR ---
ADMISSIONS DEAN NOTES RECEIVED PT IN BED, NOT IN DISTRESS. ON 2L NC. O2 SAT 95%. PT IS NPO. ON TELE AFIB 90'S. PT IS A/OX2-3. IV SITE RUNNING FLUIDS/INTACT/NO S/X OF INFECTION. BED IN LOCKED/LOWEST POSITION. CALL LIGHT IN REACH. WILL CONT TO MONITOR.
[2018-12-03 08:00] VITALS: BP 101/62
[2018-12-03] MEDS: RIVASTIGMINE TARTRATE 1.5 MG CAPSULE PO SCH ×3 (09:00→17:27)
--- NOTE | 2018-12-03 09:00 | NUR ---
ROVING WINDER NOTES MEDS HELD FOR SMALL BOWEL FOLLOW THROUGH
[2018-12-03] MEDS: PANTOPRAZOLE 40 MG VIAL IV SCH (09:18)
[2018-12-03] MEDS ORDERED: DIATR MEGLU/DIATRIZOATE SODIUM 120 ML BOTTLE (GASTROGRAPHIN) ONE (10:26)
[2018-12-03] MEDS: ACETAMINOPHEN 325 MG TABLET PO PRN (11:11)
[2018-12-03 12:00] VITALS: BP 122/74
--- NOTE | 2018-12-03 12:00 | NUR ---
RN MENTAL HEALTH NOTES PT BROUGHT BACK TO FLOOR FROM RADIOLOGY. PT REFUSED TO GO FURTHER WITH DIAGNOSTIC SMALL BOWEL PT STATED HER BACK HURTS. NURSE GAVE TYLENOL WITHOUT RELIEF. PT STATED, "I DONT WANT PAIN MEDS. I DONT WANT TO DO THE TEST." WILL NOTIFY .
[2018-12-03] MEDS: Magnesium 1GM/D5W 100ML PREMIX 100 ML IV SCH ×2 (12:02→13:15)
--- NOTE | 2018-12-03 12:41 | NUR ---
PECAN SHELLER NOTES DR LISA ROUNDING WITH PATIENT. ORDERED PT ON LACTOSE FREE DIET, REGULAR, BLAND WITH ASPIRATION PRECAUTIONS.
[2018-12-03 16:00] VITALS: BP 128/67
[2018-12-03] MEDS: risperiDONE 0.25 MG TABLET PO SCH (17:26)
[2018-12-03] MEDS: RIVAROXABAN 15 MG TABLET PO SCH (17:27)
--- NOTE | 2018-12-03 19:00 | NUR ---
FAMILY DAY CARE PROVIDER NOTES PT IN BED, RESTING. NOT IN DISTRESS AT THIS TIME. PT HAD 2 BM'S. 1 LARGE. IV FLUIDS RUNNING. IV SITE PATENT. BED IN LOCKED/LOWEST POSITION. CALL LIGHT IN REACH. ENDORSED TO PM SHIFT FOR LETI.
[2018-12-03 20:00] VITALS: BP 135/80
--- NOTE | 2018-12-03 20:00 | NUR ---
RN INITIAL NOTES RECEIVED PT IN EDI & OX3, ON 2L NC. O2 SAT 95%.TELE AFIB, HR 90'S. PT IS A/OX2-3. IV SITE IN R AC WITH INFUSING ORDERED NO S/X OF INFECTION. BED IN LOCKED/LOWEST POSITION. CALL LIGHT IN REACH. WILL CONT TO MONITOR.
[2018-12-03] MEDS: DOCUSATE SODIUM 100 MG CAPSULE PO SCH (21:14)
[2018-12-04] VITALS: BP 131/69
[2018-12-04] MEDS: INSULIN REGULAR, HUMAN 100 UNIT/ML 3 ML VIAL SQ PRN (00:09)
[2018-12-04] MEDS: BLOOD SUGAR DIAGNOSTIC 1 EACH STRIP IN SCH ×4 (00:10→17:17)
[2018-12-04] MEDS: ONDANSETRON HCL/PF 4 MG/2 ML VIAL IVP PRN ×2 (01:23→15:47)
[2018-12-04 04:00] VITALS: BP 144/73
[2018-12-04] MEDS: METRONIDAZOLE 500MG/ NS 100ML 500 MG in PREMIX 1 EA IV SCH ×2 (05:27→12:38)
--- NOTE | 2018-12-04 06:38 | NUR ---
RN CLOSING NOTES PT IN BED, ASLEEP. NO DISTRESS AT THIS TIME. PT HAD 2 BM'S. PT C/O FOR N&V, EMISIS X2, ZOFRAN GIVEN. IV FLUIDS RUNNING ORDERED. IV SITE PATENT AND INTACT. BED IN LOCKED/LOWEST POSITION. CALL LIGHT IN REACH. ENDORSED TO AM SHIFT FOR LETI.
[2018-12-04 08:00] VITALS: BP 153/78
--- NOTE | 2018-12-04 08:16 | NUR ---
RN INITIAL NOTES PT AWAKE IN BED WITH NAD. VERBALLY RESPONSIVE, DENIES PAIN. SAFETY ENSURED . AFLUTTER ON THE MONITOR WITH HR = 94.
[2018-12-04] MEDS: RIVASTIGMINE TARTRATE 1.5 MG CAPSULE PO SCH ×2 (09:23→16:18)
[2018-12-04] MEDS: PANTOPRAZOLE 40 MG VIAL IV SCH (09:27)
--- NOTE | 2018-12-04 12:00 | NUR ---
rn notes pt seen by Dr Mcbride
[2018-12-04] MEDS: DIGOXIN INJ 0.5 MG/2 ML AMPUL IV SCH (12:38)
[2018-12-04] MEDS: IV NS 0.9% 1,000 ML IV PRN (15:55)
[2018-12-04 16:00] VITALS: BP 143/86
[2018-12-04] MEDS: RIVAROXABAN 15 MG TABLET PO SCH (16:18)
[2018-12-04] MEDS: risperiDONE 0.25 MG TABLET PO SCH (17:17)
--- NOTE | 2018-12-04 18:59 | NUR ---
rn closing notes pt awake in bed, nad, denies any discomfort. no significant change noted. will endorse to next shift for continuity of care in stable condition
[2018-12-04 20:00] VITALS: BP_SYST 142; BP_SYST 143; BP_DIAS 95
--- NOTE | 2018-12-04 20:00 | NUR ---
RN INITIAL NOTES RECEIVED PT IN BED A & OX3, ON 2L NC. O2 SAT 95%.TELE AFIB, HR 90'S. PT IS A/OX2-3. IV SITE IN R FA INFUSING IV FLUIDS ORDERED NO S/S OF INFECTION. BED IN LOCKED/LOWEST POSITION. CALL LIGHT IN REACH. WILL CONT TO MONITOR.
[2018-12-04] MEDS ORDERED: MEROPENEM 500 MG in IV NS 0.9% 50 ML IV SCH (21:00)
[2018-12-04] MEDS ORDERED: MEROPENEM 500 MG VIAL IV ONE (21:17)
[2018-12-04] MEDS: DOCUSATE SODIUM 100 MG CAPSULE PO SCH (21:18)
[2018-12-05] MEDS: IV NS 0.9% 1,000 ML IV PRN ×2 (00:23→10:24)
[2018-12-05] MEDS: BLOOD SUGAR DIAGNOSTIC 1 EACH STRIP IN SCH ×5 (00:31→23:06)
[2018-12-05 04:00] VITALS: BP 119/69
--- NOTE | 2018-12-05 06:40 | NUR ---
RN CLOSING NOTES PT IN BED, ASLEEP. NO DISTRESS AT THIS TIME. PT HAD 2 BM'S. IV FLUIDS RUNNING ORDERED. IV SITE PATENT AND INTACT. BED IN LOCKED/LOWEST POSITION. CALL LIGHT IN REACH. ENDORSED TO AM SHIFT FOR LETI.
[2018-12-05 07:05] LABS: BASOPHILS % (AUTO) 0.1 % (0.0-2.0); HEMATOCRIT 35 % (33-45); HEMOGLOBIN 11.3 g/dL (11.5-14.8); LYMPHOCYTES # (AUTO) 0.8 /CMM (0.8-4.8); LYMPHOCYTES % (AUTO) 11.7 % (20.0-44.0); MEAN CORPUSCULAR HGB CONC 33 g/dl (31.0-36.0); MEAN CORPUSCULAR VOLUME 92 fL (82-100); MONOCYTES # (AUTO) 0.8 /CMM (0.1-1.30); MONOCYTES % (AUTO) 11.3 % (2.0-12.0); NEUTROPHILS # (AUTO) 5.5 /CMM (1.8-8.9); NEUTROPHILS % (AUTO) 75.9 % (43.0-81.0); PLATELET COUNT (AUTO) 242 /CMM (150-450); RED BLOOD CELL COUNT(AUTO) 3.75 MIL/uL (4.0-5.2); WHITE BLOOD COUNT (AUTO) 7.2 K/uL (4.3-11.0)
[2018-12-05 07:10] LABS: CALCIUM, SERUM 7.9 mg/dL (8.5-10.1); CARBON DIOXIDE 23 mmol/L (21-32); CHLORIDE 115 mmol/L (98-107); CREATININE 0.8 mg/dL (0.6-1.3); GLUCOSE 106 mg/dL (74-106); POTASSIUM 2.9 mmol/L (3.5-5.1); SODIUM SERUM 149 mmol/L (136-145); UREA NITROGEN, BLOOD 16 mg/dL (7-18)
--- NOTE | 2018-12-05 07:20 | NUR ---
Nurse Notes: received report from the night nurse Gabriela Birmingham, received patient resting in bed, IV is infusing, patient is complaining of some nausea, Patient will receive IV protonix.
[2018-12-05 08:00] VITALS: BP 151/74
[2018-12-05] MEDS ORDERED: POTASSIUM CHLORIDE 20 MEQ TAB.PRT.SR PO SCH ×2 (10:00→11:00)
[2018-12-05] MEDS: PANTOPRAZOLE 40 MG VIAL IV SCH (10:09)
[2018-12-05] MEDS: RIVASTIGMINE TARTRATE 1.5 MG CAPSULE PO SCH ×2 (10:12→17:06)
[2018-12-05] MEDS: MEROPENEM 500 MG in IV NS 0.9% 100 ML IV SCH ×2 (11:37→22:59)
[2018-12-05] MEDS: DIGOXIN INJ 0.5 MG/2 ML AMPUL IV SCH (13:27)
[2018-12-05] MEDS: ACETAMINOPHEN 325 MG TABLET PO PRN ×2 (13:30→21:18)
--- NOTE | 2018-12-05 15:00 | NUR ---
Nurse Notes: patient received oral potassium, IV to start with 40 meQ, pharmacy called, that IV bag is not available, not in medication room, waiting for IV fluids to be bought from pharmacy. Patient is not eating her solid food, taking the apple sauce and pudding., with jello. patient states does not have an appetite.
[2018-12-05 16:00] VITALS: BP 149/75
[2018-12-05] MEDS: RIVAROXABAN 15 MG TABLET PO SCH (17:06)
[2018-12-05] MEDS: Potassium Chloride 40 MEQ in IV D5W 1,000 ML IV PRN (17:07)
[2018-12-05] MEDS: INSULIN REGULAR, HUMAN 100 UNIT/ML 3 ML VIAL SQ PRN ×2 (17:51→23:07)
--- NOTE | 2018-12-05 17:52 | NUR ---
Nurse Notes: patient is not eating her dinner, accu-check is 132, taking only apple sauce and pudding. to swallow pills. states she has no appetite.
[2018-12-05] MEDS: ENSURE CLEAR 237 ML LIQUID (MIX BERRY) PO SCH (18:00)
[2018-12-05] MEDS: risperiDONE 0.25 MG TABLET PO SCH (18:01)
--- NOTE | 2018-12-05 19:30 | NUR ---
MS RN NOTE: RECEIVED PT ON BED ALERT WITH EPISODES OF CONFUSION. NO APPARENT DISTRESS NOTED. DENIES PAIN AND DISCOMFORT AT THIS TIME. ON 2LPM NASAL CANNULA, NO SOB NOTED. IV ON RIGHT FOREARM #22 INTACT AND PATENT, IVF INFUSING WELL. KEPT CLEAN, DRY AND COMFORTABLE. SAFETY AND FALL PRECAUTIONS OBSERVED AND MAINTAINED. WILL CONTINUE TO MONITOR PT.
[2018-12-05 20:00] VITALS: BP 140/85
[2018-12-05] MEDS: DOCUSATE SODIUM 100 MG CAPSULE PO SCH (21:18)
[2018-12-06 04:00] VITALS: BP 129/64
[2018-12-06] MEDS: BLOOD SUGAR DIAGNOSTIC 1 EACH STRIP IN SCH ×3 (05:09→18:23)
[2018-12-06] MEDS: Potassium Chloride 40 MEQ in IV D5W 1,000 ML IV PRN ×2 (06:19→20:38)
[2018-12-06 06:38] LABS: BASOPHILS % (AUTO) 0.1 % (0.0-2.0); CALCIUM, SERUM 7.6 mg/dL (8.5-10.1); CARBON DIOXIDE 25 mmol/L (21-32); CHLORIDE 110 mmol/L (98-107); CREATININE 0.8 mg/dL (0.6-1.3); EOSINOPHILS % (AUTO) 1.2 % (0.0-6.0); GLUCOSE 124 mg/dL (74-106); HEMATOCRIT 35 % (33-45); HEMOGLOBIN 11.6 g/dL (11.5-14.8); LYMPHOCYTES # (AUTO) 1.1 /CMM (0.8-4.8); LYMPHOCYTES % (AUTO) 13.5 % (20.0-44.0); MEAN CORPUSCULAR HGB CONC 33 g/dl (31.0-36.0); MEAN CORPUSCULAR VOLUME 92 fL (82-100); MONOCYTES # (AUTO) 0.8 /CMM (0.1-1.30); MONOCYTES % (AUTO) 9.6 % (2.0-12.0); NEUTROPHILS # (AUTO) 6.1 /CMM (1.8-8.9); NEUTROPHILS % (AUTO) 75.6 % (43.0-81.0); PLATELET COUNT (AUTO) 270 /CMM (150-450); POTASSIUM 3.5 mmol/L (3.5-5.1); RED BLOOD CELL COUNT(AUTO) 3.83 MIL/uL (4.0-5.2); SODIUM SERUM 142 mmol/L (136-145); UREA NITROGEN, BLOOD 12 mg/dL (7-18); WHITE BLOOD COUNT (AUTO) 8.1 K/uL (4.3-11.0)
--- NOTE | 2018-12-06 06:48 | NUR ---
MS RN NOTE: NO CHANGES NOTED THROUGHOUT THE SHIFT. PT STILL HAS EPISODE OF CONFUSION. NO APPARENT DISTRESS NOTED. DENIES PAIN AND DISCOMFORT AT THIS TIME. ON 2LPM NASAL CANNULA, NO SOB NOTED. IV ON RIGHT FOREARM #22 INTACT AND PATENT, FLUSHING WELL. KEPT CLEAN, DRY AND COMFORTABLE. SAFETY AND FALL PRECAUTIONS OBSERVED AND MAINTAINED. WILL ENDORSE TO DAY SHIFT RN FOR CONTINUITY OF CARE.
--- NOTE | 2018-12-06 07:30 | NUR ---
INITIAL RECEIVED PT IN BED A & OX3, ON 2L NC. O2 SAT 95%.TELE AFIB, HR 90'S. PT IS A/OX2-3. IV SITE IN R FA INFUSING IV FLUIDS ORDERED NO S/S OF INFECTION. BED IN LOCKED/LOWEST POSITION. CALL LIGHT IN REACH. WILL CONT TO MONITOR.
[2018-12-06 08:00] VITALS: BP 140/65
[2018-12-06] MEDS: PANTOPRAZOLE 40 MG VIAL IV SCH (08:55)
[2018-12-06] MEDS: RIVASTIGMINE TARTRATE 1.5 MG CAPSULE PO SCH ×2 (08:55→17:18)
[2018-12-06] MEDS: ENSURE CLEAR 237 ML LIQUID (MIX BERRY) PO SCH ×3 (08:56→17:12)
[2018-12-06] MEDS: ACETAMINOPHEN 325 MG TABLET PO PRN (10:05)
[2018-12-06] MEDS: MEROPENEM 500 MG in IV NS 0.9% 100 ML IV SCH (10:06)
[2018-12-06] MEDS: INSULIN REGULAR, HUMAN 100 UNIT/ML 3 ML VIAL SQ PRN ×2 (11:30→18:23)
[2018-12-06 12:00] VITALS: BP_SYST 115; BP_SYST 140; BP_DIAS 65; BP_DIAS 70
[2018-12-06] MEDS: DIGOXIN INJ 0.5 MG/2 ML AMPUL IV SCH (13:05)
--- NOTE | 2018-12-06 13:47 | NUR ---
PT EVALUATED BY MD FERNANDEZ PT ORDER PLACED GUTIÉRREZ REMOVED FAMILY AT BEDSIDE. LUIS JARAMILLO SPOKE WITH
--- NOTE | 2018-12-06 14:04 | NUR ---
GUTIÉRREZ D/C'DT EVALUATING PT
[2018-12-06 16:00] VITALS: BP 133/68
[2018-12-06] MEDS: RIVAROXABAN 15 MG TABLET PO SCH (17:15)
[2018-12-06] MEDS ORDERED: LEVOFLOXACIN (250MG) 250 MG TABLET PO SCH (18:00)
[2018-12-06] MEDS: risperiDONE 0.25 MG TABLET PO SCH (18:13)
[2018-12-06 20:00] VITALS: BP 140/72
[2018-12-06] MEDS: DOCUSATE SODIUM 100 MG CAPSULE PO SCH (22:04)
[2018-12-07] MEDS: INSULIN REGULAR, HUMAN 100 UNIT/ML 3 ML VIAL SQ PRN ×2 (00:53→06:07)
[2018-12-07] MEDS: BLOOD SUGAR DIAGNOSTIC 1 EACH STRIP IN SCH ×2 (00:53→06:06)
[2018-12-07 04:00] VITALS: BP 131/85
[2018-12-07] MEDS: Potassium Chloride 40 MEQ in IV D5W 1,000 ML IV PRN (06:01)
--- NOTE | 2018-12-07 07:00 | NUR ---
MS RN NOTES RECEIVED PT IN BED, A/OX2. ON 2L NC SAT WNL. NO S/SX OF DISTRESS AT THIS TIME. IV SITE C/D/I/P. BED IN LOCKED/LOWEST POSITION. CALL LIGHT IN REACH. WILL CONT TO MONITOR.
[2018-12-07 07:16] LABS: CALCIUM, SERUM 7.6 mg/dL (8.5-10.1); CARBON DIOXIDE 24 mmol/L (21-32); CHLORIDE 107 mmol/L (98-107); CREATININE 0.7 mg/dL (0.6-1.3); GLUCOSE 113 mg/dL (74-106); POTASSIUM 3.6 mmol/L (3.5-5.1); SODIUM SERUM 139 mmol/L (136-145); UREA NITROGEN, BLOOD 8 mg/dL (7-18)
[2018-12-07 07:17] LABS: BASOPHILS % (AUTO) 0.3 % (0.0-2.0); EOSINOPHILS % (AUTO) 0.6 % (0.0-6.0); HEMATOCRIT 37 % (33-45); LYMPHOCYTES % (AUTO) 9.1 % (20.0-44.0); MEAN CORPUSCULAR HGB CONC 33 g/dl (31.0-36.0); MEAN CORPUSCULAR VOLUME 91 fL (82-100); MONOCYTES # (AUTO) 0.8 /CMM (0.1-1.30); MONOCYTES % (AUTO) 7.5 % (2.0-12.0); NEUTROPHILS # (AUTO) 9.3 /CMM (1.8-8.9); NEUTROPHILS % (AUTO) 82.5 % (43.0-81.0); PLATELET COUNT (AUTO) 276 /CMM (150-450); RED BLOOD CELL COUNT(AUTO) 4.04 MIL/uL (4.0-5.2); WHITE BLOOD COUNT (AUTO) 11.2 K/uL (4.3-11.0)
[2018-12-07 08:00] VITALS: BP 147/75
[2018-12-07] MEDS: PANTOPRAZOLE 40 MG VIAL IV SCH (08:44)
--- NOTE | 2018-12-07 08:48 | NUR ---
MS RN NOTES PER PHARM EXELON 0900 DOSE WILL NOT ARRIVE TILL 1100.
[2018-12-07] MEDS: ENSURE CLEAR 237 ML LIQUID (MIX BERRY) PO SCH (09:40)
[2018-12-07] MEDS ORDERED: DIGO125T PO (09:48)
[2018-12-07] MEDS: RIVASTIGMINE TARTRATE 1.5 MG CAPSULE PO SCH (10:44)
--- NOTE | 2018-12-07 11:01 | NUR ---
MS RN NOTES PT LEFT WITH SON AND GRANDSON IN WHEELCHAIR, MARKETING AND DEVELOPMENT COORDINATOR ACCOMPANYING. PT'S IV REMOVED/ID BAND REMOVED/ DISCHARGE INSTRUCTIONS GIVEN/PRESCRIPTIONS GIVEN. BELONGINGS WITH PT. SKIN INTACT. ALL NEEDS ATTENDED TO.
[2018-12-07] MEDS ORDERED: LEVOFLOXACIN (250MG) 250 MG TABLET PO SCH (18:00)
== END 2018-12-07 11:00 | disposition home health service (06) | DRG 388 ==
LOC: ER 10:39 → ICU 14:07 → TELE1 12-02 17:30 → MEDSG1 12-04 10:16
PROVIDERS: ADMIT Nurse Practitioner Acute Care; ATTEND Family Medicine
DX: K56.690 Other partial intestinal obstruction (principal); N17.0 Acute kidney failure with tubular necrosis; E43 Unspecified severe protein-calorie malnutrition; E87.0 Hyperosmolality and hypernatremia; K57.30 Diverticulosis of large intestine without perforation or abscess without bleeding; A08.4 Viral intestinal infection, unspecified; I48.91 Unspecified atrial fibrillation; E83.42 Hypomagnesemia; E87.6 Hypokalemia; F03.90 Unspecified dementia, unspecified severity, without behavioral disturbance, psychotic disturbance, mood disturbance, and anxiety; K21.9 Gastro-esophageal reflux disease without esophagitis; I12.9 Hypertensive chronic kidney disease with stage 1 through stage 4 chronic kidney disease, or unspecified chronic kidney disease; Z86.73 Personal history of transient ischemic attack (TIA), and cerebral infarction without residual deficits; N18.9 Chronic kidney disease, unspecified; Z95.0 Presence of cardiac pacemaker; Z96.643 Presence of artificial hip joint, bilateral; Z79.01 Long term (current) use of anticoagulants; K80.20 Calculus of gallbladder without cholecystitis without obstruction; Z88.0 Allergy status to penicillin; D72.829 Elevated white blood cell count, unspecified; R73.9 Hyperglycemia, unspecified; E88.09 Other disorders of plasma-protein metabolism, not elsewhere classified; Z68.23 Body mass index [BMI] 23.0-23.9, adult; E78.00 Pure hypercholesterolemia, unspecified; Z79.82 Long term (current) use of aspirin
CPT/HCPCS: 36415; 71045-TC; 74018; 74250-TC; 80048-TC; 80053-TC; 80076-TC; 81000-TC; 82962-TC; 83605-TC; 83735-TC; 83880; 84100-TC; 84443-TC; 84484-TC; 85025-TC; 85730-TC; 87040-TC; 87081-TC; 87086-TC; 93307-TC; A4216; C9113; G0378; J1160; J1815; J2185; J2370; J2405; J3475; J3480; J3490; J7030; J7040; J7060; J7070; Q9963